=== PATIENT | female | born 1975 | race Caucasian/White ===

== ENCOUNTER 2025-01-20 19:36 | Inpatient (IN) | payer OTHER, SELFPAY ==
[2025-01-20] VITALS (7 sets, daily range): BP systolic 142–178; BP diastolic 64–128; PULSE 58–111; RESP 21–31; TEMP 36.4–36.7; O2SAT 92–100
--- NOTE | ~2025-01-20 | US_ITS ---
BILATERAL LOWER EXTREMITY VENOUS ULTRASOUND Ordering provider: Freya Saravia History: . Left lower extremity edema, PE . Comparison: None. FINDINGS: RIGHT LOWER EXTREMITY VEINS: --COMMON FEMORAL: Patent and free of thrombus. Normal compressibility, phasic flow and augmentation. --PROXIMAL SUPERFICIAL FEMORAL: Patent and free of thrombus. Normal compressibility, phasic flow and augmentation. --DISTAL SUPERFICIAL FEMORAL: Patent and free of thrombus. Normal compressibility, phasic flow and au gmentation. --POPLITEAL: Patent and free of thrombus. Normal compressibility, phasic flow and augmentation. --POSTERIOR TIBIAL: Patent and free of thrombus. Normal compressibility, phasic flow and augmentation . LEFT LOWER EXTREMITY VEINS: --COMMON FEMORAL: Patent and free of thrombus. Normal compressibility, phasic flow and augmentation. --PROXIMAL SUPERFICIAL FEMORAL: Patent and free of thrombus. Normal compressibility, phasic flow and augmentation. --DISTAL SUPERFICIAL FEMORAL: Patent and free of thrombus. Normal compressibility, phasic flow and au gmentation. --POPLITEAL: Patent and free of thrombus. Normal compressibility, phasic flow and augmentation. --POSTERIOR TIBIAL: Thrombosed. --Peroneal vein: Thrombosed. IMPRESSION: Thrombosis in the left peroneal and posterior tibial veins. No right deep vein thrombosis. Reviewed, dictated and finalized at location A.
--- NOTE | ~2025-01-20 | CT_ITS ---
CT brain wo con Ordering provider: Stefani Rogers DO History: 49 years Female with . Visual changes, dizziness, recently blood thinner . Comparison: None. Technique: CT of the head without contrast. Radiation reduction technique utilized.The dose-length pr oduct was 605.33 mGy-cm. Ke FINDINGS: BRAIN PARENCHYMA AND CSF SPACES: No midline shift, mass effect or hemorrhage. The brain parenchyma a nd CSF spaces are otherwise normal. VISUALIZED PARANASAL SINUSES: Well aerated. MASTOIDS: Well aerated. BONES: The bones appear intact. SOFT TISSUES: Visualized nasopharynx is normal. Superficial soft tissues are normal. IMPRESSION: No acute intracranial findings. Reviewed, dictated and finalized at location A.
--- NOTE | ~2025-01-20 | XR_ITS ---
EXAMINATION: XR chest 2V Exam Date/Time: 01/20/2025 20:19 CDT HISTORY: sob Comparison: None. RESULT: Lines, tubes, and devices: Soft tissue anchors in the right humeral head. Lungs and pleura: Clear. Scattered granulomas. Cardiomediastinal silhouette: Unremarkable. Other: No acute osseous or upper abdominal finding. IMPRESSION: No acute cardiopulmonary process. Reviewed, dictated and finalized at location K.
--- NOTE | ~2025-01-20 | CT_ITS ---
CTA chest PE protocol Ordering provider: Milad Grijalva History: 49 years Female with . elevated dimer . Comparison: None. Technique: CT angiogram chest was performed following timed intravenous injection of contrast. Thin s lice axial images and reformatted coronal images were obtained. Three dimensional reformatted images of the chest were also obtained using a [employer] workstation. . Automated exposure control and iterati ve reconstruction technique were employed. The dose-length product was 792.20 mGy-cm. 100 mL Omnipaqu e 350 was given IV. Findings: PULMONARY ARTERIES: pulmonary embolism is noted. Right ventricular strain is noted. VISUALIZED THORACIC INLET: Normal. MEDIASTINUM: Aorta/coronary arteries: The thoracic aorta is normal. Heart/other: The heart is slightly enlarged. Lymph nodes: No mediastinal or hilar adenopathy. LUNGS: Groundglass appearance is seen in the upper and lower lobes which may indicate atelectasis versus pne umonia versus pulmonary edema. Clinical correlation and follow-up advised. No pulmonary nodules or ma sses. No effusions. No pneumothorax. VISUALIZED UPPER ABDOMEN: Status post cholecystectomy. Otherwise, the visualized upper abdomen is nor mal. MUSCULOSKELETAL: Soft tissues: The superficial soft tissues are normal. Bones: Age appropriate degenerative changes of the spine. IMPRESSION: 1. Pulmonary embolism with right ventricular strain. 2. Groundglass appearance is seen in both lower lobes and both upper lobes which may indicate atelec tasis versus pneumonia versus pulmonary edema. Clinical correlation and follow-up advised. I called the hospitalist office multiple times with no success and left a message on the voicemail. Reviewed, dictated and finalized at location A. IMPRESSION: 1. Pulmonary embolism with right ventricular strain. 2. Groundglass appearance is seen in both lower lobes and both upper lobes whi ch may indicate atelectasis versus pneumonia versus pulmonary edema. Clinical c orrelation and follow-up advised. I called the hospitalist office multiple times with no success and left a messa ge on the voicemail.
--- NOTE | 2025-01-20 19:55 | ECG_ITS ---
Test Date: 2025-01-20 20:15:09 Measurements Intervals [place] Rate: 101 P: 30 CO: 164 QRS: -12 QRSD: 93 T: 18 QT: 356 QTc: 462 Interpretive Statements SINUS TACHYCARDIA Poor R wave progression No previous ECG available for comparison Electronically Signed On 01-20-2025 22:08:56 CDT by Kaylen Montgomery M.D.
[2025-01-20 20:33] LABS: Hematocrit 41.6 % (37.0-47.0); Hemoglobin 13.8 g/dL (12.0-15.0); Immature Granulocyte Percent A 0.1 % (0-0.5); Lymphocytes Absolute Auto 3.24 K/mm3 (0.9-3.2); Mean Corpuscular HGB Conc 33.2 g/dl (32-36); Mean Corpuscular Hemoglobin 31.9 pg (26-34); Mean Corpuscular Volume 96.3 fl (80-100); Nucleated Red Blood Cells Absolute Auto 0.000 K/mm3 (0.0-0.012); Nucleated Red Blood Cells Perc 0.0 % (0.0-0.2); Platelet Count Result 256 k/mm3 (150-375); Red Blood Count 4.32 M/mm3 (4.2-5.4); White Blood Count 9.9 K/mm3 (4.5-10.0)
[2025-01-20 20:45] LABS: Alanine Aminotransferase 26 U/L (6-35); Albumin Level 3.6 g/dL (3.5-5.1); Alkaline Phosphatase 97 U/L (38-126); Anion Gap 7 mmol/L (4-12); Aspartate Amino Transferase 26 U/L (14-36); Bilirubin,Total 0.1 mg/dL (0.2-1.3); Blood Urea Nitrogen 8 mg/dL (7-17); Calcium 8.7 mg/dL (8.4-10.2); Carbon Dioxide 25 mmol/L (22-30); Chloride 106 mmol/L (98-107); Estimated CRCL calculation 124 ml/min; Estimated Glomerular Filt Rate > 60; Glucose 118 mg/dL (65-110); Potassium 3.3 mmol/L (3.4-5.0); Sodium 138 mmol/L (137-145); Total Protein 6.8 g/dL (6.3-8.2)
[2025-01-20 21:12] LABS: Influenza A QL RT-PCR Negative (Negative); Influenza B QL RT-PCR Negative (Negative); RSV RNA, RT-PCR Negative (Negative); SARS-CoV-2 RNA PCR Negative (Negative)
--- NOTE | 2025-01-20 21:24 | ED_ITS ---
HPI - General Adult General Chief complaint: Shortness of Breath/Dyspnea Stated complaint: SOB since Monday Time Seen by Provider: 01/20/25 21:16 History of Present Illness HPI narrative: Patient is a 49-year-old female who presents to the emergency department this evening complaining of a COPD exacerbation. States that she has been having shortness of breath since this past Monday. She tried again with her PCP but she can get in until January 30. Admits that she does have a history of COPD and does use an albuterol inhaler at home. States that despite using the inhaler her symptoms have not improved and from time to time she does need to come to the ED for nebulizer, steroids and some antibiotics. Admits that she has been having a cough but denies any fevers or chills. Denies any sick contacts at home. Related Data Allergies Allergy/AdvReac Type Severity Reaction Status Date / Time No Known Allergies Allergy Verified 01/20/25 21:29 Review of Systems 2 Review of Systems: All systems are reviewed and are negative unless stated otherwise in the HPI. Exam 2 Narrative: General: Alert, awake, afebrile, in no acute distress. HEENT: PERRL, no rhinorrhea, no post nasal drip, oropharynx clear. Neck: Trachea midline, no JVD, no lymphadenopathy. Cardiovascular: Tachycardic with regular rhythm, no murmurs, rubs or gallops, no peripheral edema. Respiratory: Diffuse bilateral expiratory and inspiratory wheezing, tachypnea, no respiratory distress. Abdomen: Soft, nontender, nondistended, no rebound, no guarding, no peritoneal signs. Musculoskeletal: No joint swelling or deformity, normal muscle tone. Skin: No rashes or petechia, no signs of infection. Psychiatric: Alert and oriented, normal behavior and judgment for situation. Neurological: Alert and oriented to person, place, and time. Follows all commands. No focal deficits, speech is clear and fluent. Course Vital Signs Vital signs: Vital Signs Temperature 97.5 F L 01/20/25 19:52 Pulse Rate 111 H 01/20/25 19:52 Respiratory Rate 26 H 01/20/25 19:52 Blood Pressure 142/97 H 01/20/25 19:52 Pulse Oximetry 96 01/20/25 19:52 Oxygen Delivery Room Air 01/20/25 19:52 Temperature 97.5 F L 01/20/25 19:52 Pulse Rate 111 H 01/20/25 19:52 Respiratory Rate 26 H 01/20/25 19:52 Blood Pressure 142/97 H 01/20/25 19:52 Pulse Oximetry 98 01/20/25 21:47 Oxygen Delivery Room Air 01/20/25 21:47 Fraction of Inspired Oxygen 21 01/20/25 21:47 Medical Decision Making MDM Narrative Medical decision making narrative: The patient was evaluated by myself in the emergency department. History is obtained from patient who is an independent historian and physical exam was performed. External medical records were reviewed at this time. IV was established and pertinent tests were ordered. Patient was administered 1 L IV fluid bolus with normal saline, an hour long DuoNeb breathing treatment and 125 mg of IV Solu-Medrol. EKG was obtained which revealed sinus tachycardia rate of 101 beats per minute. No ST changes, T wave inversions or evidence of acute ischemia. EKG was independently interpreted by me and is currently pending official cardiology read. Laboratory results obtained revealing a potassium level of 3.3 otherwise unremarkable. Patient was administered 40 mg of oral potassium at this time. Imaging studies obtained included CXR which was independently interpreted by me revealing no acute cardiopulmonary process, which is pending final radiology interpretation. Differential diagnosis considerations include COPD exacerbation, acute viral syndrome, infectious process such as pneumonia. Comorbidities impacting this visit include history of COPD. I have evaluated and discussed social determinants of health with the patient that could potentially impact subsequent diagnosis and treatment plans. On repeat assessment of the patient, reevaluation revealed that the patient is doing well and is in no acute distress. Patient symptoms have improved since she arrived to our emergency department, however, patient continues to feel short of breath and does have persistent bilateral wheezing. Repeat vital signs were all reviewed and noted to be stable. Differential diagnosis and treatment plan were discussed with the patient at bedside. Patient agrees with discussion and after shared medical decision making agrees with admission. All questions were answered to the patient's satisfaction. Case discussed with the on-call hospitalist Dr. Rogers at [phone] and she accepted admission. Vital Signs Vital Signs: Vital Signs Temperature 97.5 F L 01/20/25 19:52 Pulse Rate 111 H 01/20/25 19:52 Respiratory Rate 26 H 01/20/25 19:52 Blood Pressure 142/97 H 01/20/25 19:52 Pulse Oximetry 96 01/20/25 19:52 Oxygen Delivery Room Air 01/20/25 19:52 Temperature 97.5 F L 01/20/25 19:52 Pulse Rate 111 H 01/20/25 19:52 Respiratory Rate 26 H 01/20/25 19:52 Blood Pressure 142/97 H 01/20/25 19:52 Pulse Oximetry 98 01/20/25 21:47 Oxygen Delivery Room Air 01/20/25 21:47 Fraction of Inspired Oxygen 21 01/20/25 21:47 Lab Data 01/20/25 20:20 01/20/25 20:20 Labs: Lab Results 01/20/25 Range/Units 20:20 WBC 9.9 (4.5-10.0) K/mm3 RBC 4.32 (4.2-5.4) M/mm3 Hgb 13.8 (12.0-15.0) g/dL Hct 41.6 (37.0-47.0) % MCV 96.3 (80-100) fl MCH 31.9 (26-34) pg MCHC 33.2 (32-36) g/dl RDW 11.9 (11.5-14.5) % Plt Count 256 (150-375) k/mm3 MPV 9.7 (7.4-10.4) fl Immature Gran % (Auto) 0.1 (0-0.5) % Neut % (Auto) 52.8 (45.5-73.1) % Lymph % (Auto) 32.9 (18.3-44.2) % [place] % (Auto) 9.5 H (2.6-8.5) % Eos % (Auto) 4.2 (0-4.4) % Baso % (Auto) 0.5 (0.2-1.2) % Lymph # (Auto) 3.24 H (0.9-3.2) K/mm3 [place] # (Auto) 0.9 H (0.1-0.6) K/mm3 Eos # (Auto) 0.4 H (0-0.3) K/mm3 Baso # (Auto) 0.1 (0.0-0.1) K/mm3 Abs Immat Gran (auto) 0.01 (0.00-0.031) K/mm3 Absolute Neuts (auto) 5.2 (1.3-6.7) K/mm3 Absolute Nucleated RBC 0.000 (0.0-0.012) K/mm3 Nucleated RBC % 0.0 (0.0-0.2) % Sodium 138 (137-145) mmol/L Potassium 3.3 L (3.4-5.0) mmol/L Chloride 106 (98-107) mmol/L Carbon Dioxide 25 (22-30) mmol/L Anion Gap 7 (4-12) mmol/L BUN 8 (7-17) mg/dL Creatinine 0.59 L (0.7-1.0) mg/dL Estim Creat Clear Calc 124 ml/min Estimated GFR > 60 (59 - ) Glucose 118 H (65-110) mg/dL Calcium 8.7 (8.4-10.2) mg/dL Total Bilirubin 0.1 L (0.2-1.3) mg/dL AST 26 (14-36) U/L ALT 26 (6-35) U/L Alkaline Phosphatase 97 (38-126) U/L Total Protein 6.8 (6.3-8.2) g/dL Albumin 3.6 (3.5-5.1) g/dL Influenza A (RT-PCR) Negative (Negative) Influenza B (RT-PCR) Negative (Negative) RSV (RT-PCR) Negative (Negative) SARS-CoV-2 RNA (RT-PCR) Negative (Negative) Discharge Plan Discharge Clinical Impression: COPD with acute exacerbation, Acute dyspnea, Acute hypokalemia Patient Disposition: Still a Patient Condition: Improved Instructions: COPD (Chronic Obstructive Pulmonary Disease) (DC) Patient Language: Kiswahili Prescriptions: New methylprednisolone [Medrol (Gm)] 4 mg tablets,dose pack See Rx Instructions .ROUTE .COMPLEX Qty: 21 0RF Rx Instructions: for 6 days azithromycin 250 mg tablet See Rx Instructions .ROUTE .COMPLEX Qty: 6 0RF Rx Instructions: For 250 mg dose pack: take 500 mg today (day 1), then 250 mg for 4 days (days 2-5) Time of Disposition: 21:31
--- OUTSIDE RECORDS SUMMARY | 2025-01-20 21:30 | XMS_ITS | Clinical Summary ---
Author Organization [facility] Address [address] [place] [address] Care Team Providers Care Balance Assembler Name Role Phone Dorothy Godfrey SENIOR ONLINE MARKETING MANAGER-WIRE STRAIGHTENING MACHINE OPERATOR Primary Care Provider Source Comments [facility],non-owned Affiliates and Associated Physician Practices is amultiple site organization consisting of ambulatory clinics and hospital sitesin [place], [place], [place] and [place]. This disclosure is being madepursuant to the Care Everywhere program and may not contain all information available regarding this patient. Last updated 18.[facility] [employer] Allergies Active Allergy Reactions Criticality Noted Date Comments Penicillins Anaphylaxis High 06/08/2018 Medications * Be aware that medications may not be up to date on this document. Alwaysverify current medications with the patient. albuterol HFA (PROVENTIL;VENTOL IN;PROAIR) 108 (90 BASE) MCG/ACT inhaler Inhale 2 puffs by mouth every 6 hours as needed Active fluticasone propionate (FLONASE ALLERGY RELIEF) 50 MCG/ACT nasal spray [place] 2 sprays into each nostril once daily Active montelukast (SINGULAIR) 10 MG tabletIndications :Encounter for medication refill Take 1 tablet by mouth at bedtime 30 tablet 8 Active azithromycin (ZITHROMAX) 250 MG tabletIndications :COPD exacerbation (HCC) Take 2 tablets now, then 1 tablet daily for 4 days. 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 Pulse 95 06/08/2018 5:27 PM GAME FARM HELPER Temperature 37 C (98.6 F) 06/08/2018 5:27 PM GAME [employer]ARM HELPER Respiratory Rate 15 06/08/2018 5:27 PM GAME FARM HELPER Oxygen Saturation 99% 06/08/2018 5:27 PM G[employer] HELPER Inhaled Oxygen Concentration - - Weight 104.3 kg (230 lb) 06/08/2018 5:27 PM GAME [employer] HEL[employer] Height 167.6 cm (5' 6) 06/08/2018 5:27 PM GAME FARM HELPER Body Mass Index 37.12 06/08/2018 5:27 PM GAME FARM HELPER Plan of Treatment Health Maintenance Due Date Last Done Comments COLOGUARD (AGES 45-75) - COL ON CA SCREENING 1974 COLON MONITORING 1974 COLONOSCOPY - COLON CA SCREENING 1974 CT COLONOGRAPHY - COLON CA SCREENING 1974 Colorectal Cancer Screening 1974 FIT - COLON CA SCREENING 1974 FLEX SIG - COLON CA SCREENING 1974 LIPID TESTING 1974 MAMMOGRAM 1974 HIV SCREENING 1989 HEPATITIS C SCREENING 10/02/1992 DTAP/TDAP/TD VACCINES (1 - Tdap) 1993 HEPATITIS B VACCINE (1 of 3 - 19+ 3-dose series) 1993 SCREENING FOR DIABETES 06/08/2018 COVID-19 VACCINE (1 - 2023-2 5 season) 2024 DEPRESSION SCREENING 07/17/2024 PNEUMOCOCCAL VACCINE 50+ (1 of 1 - PCV) 2024 ZOSTER VACCINE (1 of 2) 2024 INFLUENZA VACCINE (#1) 2025 HIB VACCINE Aged Out No longer eligi ble based on patient's age to complete this topic HPV VACCINE Aged Out No longer eligi ble based on patient's age to complete this topic MENINGOCOCCAL (Group B) VACC INE SHARED DECISION-MAKING Aged Out No longer eligibl e based on patient's age to complete this topic MENINGOCOCCAL GROUPS A/C/Y/W VACCINE Aged Out No longer eligible b ased on patient's age to complete this topic Insurance ANTHEM Care Teams Balance Assembler Relationship Specialty Start Date End Date Dorothy Godfrey, SENIOR ONLINE MARKETING MANAGER-WIRE STRAIGHTENING MACHINE OPERATOR [address] [place] [address] [address] [place] [address] PCP - General Nurse Practitioner 06/08/18
--- OUTSIDE RECORDS SUMMARY | 2025-01-20 21:30 | XMS_ITS | Data Portability ---
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 Account Auditor variances may occur. Despite proofreading, typographical errors may occur. Occasional wrong-word or '[id number]' substitutions may have occurred due to the inherent limitations of voice recording. Read the chart carefully and recognize, using context, where substitutions have occurred. [email or web address] Not available 11/21/2023 15:01:26 Plan of Treatment Reminders Order Date Submit Date Provider Last Modified By Organization Details Last Modified Time Details Appointments Any 15 2024 08:30A M Beni winston MD Not available Not available Not available Lab glycohemo globin, total, blood 2023 024 [email or web address] [facility] (Lab), [address] [place], [address], 01/23/2024 08:16:00 CMP, serum or plasma 2023 024 [email or web address] [facility] (Lab), [address] [place], [address], 01/23/2024 08:16:00 CBC 2023 024 [email or web address] [facility] (Lab), [address] [place], [address], 01/23/2024 08:16:00 C-reactiv e protein, quantitat masoud, serum or plasma 2023 024 [email or web address] [facility] (Lab), [address] [place], [address], 01/23/2024 08:16:00 ESR (erythroc yte sedimenta tion rate), blood 2023 024 [email or web address] [facility] (Lab), [address] [place], [address], 01/23/2024 08:16:00 Referral vascular surgeon referral - PLEASE CALL PT TO SCHEDULE AN APPT..... ....THANK YOU! [email or web address] [facility] Referral Fax Line, [address] [facility], [address], [place], [address], 12/25/2023 08:21:22 podiatris t referral - Patient has multiple toe deformiti es. 2023 024 terry Bennett DPM, [address] [facility], [facility] [address], [place], [address], 11/13/2023 11:15:01 pulmonolo gist referral 2023 024 rayne Vick MD, [address] [place], [address], 05/13/2024 07:30:53 Procedures None recorded. Surgeries None recorded. Imaging XR, foot, 3 or more view 2023 024 [facility] ([facility]), [address] [place], [address], 11/07/2023 18:55:50 XR, chest, 2 view 2023 024 [facility] ([facility]), [address] [place], [address], 11/07/2023 19:29:01 XR, shoulder, 2 or more view - Left shoulder 2023 024 [facility] ([facility] Sched[facility]), [address] [place], [address], 11/07/2023 19:35:32 Medication Orders albuterol sulfate HFA 90 mcg/actua tion aerosol inhaler 2023 024 [facility] #[id number], [address], [place], [address], 10/16/2023 12:19:09 Patient TargetsNo targets recorded. 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 Referring Physician: Barbara Paredes, Internal Medicine, Encounter Date: 10/16/2023 Inventory Control Coordinator Referral for C hronic obstructive pulmonary disease Referring Physician: Barbara Paredes, Internal Medicine, Encounter Date: 10/16/2023 Vascular Surgeon Referral fo r Varicose veins of lower extremity PLEASE CALL PT TO SCHEDULE AN APPT.........THANK YOU! Referring Physician: Jitendra Bennett, Podiatric Surgery, Encounter Date: 11/21/2023 Results Created Date Observation Date Name Description Value Unit Range Abnormal Flag Note LastModifiedBy Organization Detail LastModifiedTime 11/07/1910/17/2023 XR, chest , 2 view No observ ation record ed. [facility] [address] [place], [address], 11/08/2023 10:50:00 11/07/19 24 10/17/2023 XR, foot, 3 or more view No observ ation record ed. [facility] [address] [place], [address], 11/08/2023 10:50:01 11/07/19 24 10/17/2023 XR, shoul cat, 2 or more view No observ ation record ed. [facility] [address] [place], [address], 11/08/2023 10:50:01 01/11/20 24 01/11/2024 imagi ng/di agnos tic resul t No observ ation record ed. [email or web address] [facility] [address] [facility] [address], [place], [address], 01/15/2024 09:04:19 01/11/20 24 01/11/2024 US, echoc ardio gram No observ ation record ed. [email or web address] [facility] [address] [facility] [address], [place], [address], 01/15/2024 09:47:30 01/11/20 24 01/11/2024 US, duple x, venou s, lower extre mity No observ ation record ed. [email or web address] [facility] [address], [place], [address], 01/15/2024 09:06:02 01/11/20 24 01/11/2024 US, echoc ardio gram No observ ation record ed. [email or web address] [facility] [address], [place], [address], 01/15/2024 09:47:01 12/18/19 25 12/17/2024 US, doppl er, venou s No observ ation record ed. [email or web address] [facility] [address], [place], [address], 12/18/2024 09:52:42 12/18/19 25 12/17/2024 US, doppl er, venou s No observ ation record ed. [email or web address] [facility] [address], [place], [address], 12/18/2024 09:08:45 Result Notes None recorded. Problems Name Problem SNOMED Code Status Onset Date Resolution Date Notes Provider Name and Address Organization Details Recorded Time Bronchitis 86711721 Active Not Available [facility] 16:44:47 Cough 54767817 Active Not Available [facility] 16:44:47 Diarrhea 04829573 Active Not Available [facility] 16:44:47 Rhinitis 15920743 Active Not Available [facility] 3 16:44:47 Chronic obstructiv e pulmonary disease 13798309 Active 2023 Barbara Paredes APRN [address], [address], [place], [address] , [employer] 4 12:01:26 Environmen halle allergy 362240770 Active 2023 Barbara Paredes APRN [address], [address], [place], [address] , [employer] 4 12:02:19 Pain of shoulder region 25534973 Active 2023 Barbara Paredes APRN [address], [address], [place], [address] , [employer] 4 12:02:54 Varicose vein finding 513312732 Active 2023 Barbara Paredes APRN [address], [address], [place], [address] , [employer] 4 12:03:47 Deformity of foot 987277140 Active 2023 Barbara Paredes APRN [address], [address], [place], [address] , [employer] 4 12:04:19 Anxiety 70167817 Active 2023 Barbara Paredes APRN [address], [address], [place], [address] , [facility] [employer] [facility] [employer] [facility] 4 12:06:04 Bunion 414175806 Active 2023 Jitendra Bennett DPM [address], [address], [place], [address] , [facility] [employer] [facility] [employer] [facility] 4 15:00:20 Pain in left foot 8148681935076 07 Active 2023 Jitendra Bennett DPM [address], [address], [place], [address] , [employer] [facility] [employer] [facility] 4 15:00:27 Pain in right foot 2161703036425 07 Active 2023 Jitendra Bennett DPM [address], [address], [place], [address] , [employer] [facility] [employer] [facility] 4 15:00:31 Foot callus 331386080 Active 2023 Jitendra Bennett DPM [address], [address], [place], [address] , [employer] [facility] [employer] [facility] 4 15:00:35 Varicose veins of lower extremity 30377937 Active 2023 Jitendra Bennett DPM [address], [address], [place], [address] , [facility] [employer] [facility] [employer] [facility] 4 15:01:00 Obesity 120801576 Active 2023 Barbara Paredes APRN [address], [address], [place], [address] , [facility] [employer] [facility] [employer] [facility] 4 08:38:18 Seasonal allergy 862769039 Active 2023 Mayra paige, [place] [employer] [facility] [employer] [facility] 4 15:03:34 Arthritis 2508743 Active 2023 Barbara Paredes APRN [address], [place], [address] , [facility] 4 08:38:04 Bowel problem 205785581 Active 2023 Mayra Esquiveld royal, [facility] 4 15:03:54 Ear problem 994022629 Active 2023 Mayra Esquiveld null, [facility] 4 15:04:09 Excessive sweating 58429304 Active 2023 Mayra Kymberly null, [facility] 4 15:04:19 Disorder of eye 419697185 Active 2023 Mayra Traylor royal, [facility] 4 15:04:29 Headache 31462730 Active 2023 Mayra Traylor royal, [facility] 4 15:04:36 Hypertensi ve disorder 75002320 Active 2023 Barbara Paredes APRN [address], [address], [place], [address] , [facility] 4 08:38:06 Notes:BACK/NECK PROBLEMS Problem Notes None recorded. Procedures Surgical History Date Name Laterality Status Provider Name and Address Organization Details Recorded Time 11/21/19 24 Callus Debridement, One completed Jitendra Bennett DPM [address], [place], [address], [facility] 11/27/2023 11:02:40 Hysterectomy completed Angy Caban [facility] 10/16/2023 11:54:35 Cholecystectomy completed Angy Caban [facility] 10/16/2023 11:54:58 Rotator cuff surgery completed Angy Caban [facility] 10/16/2023 11:55:13 Imaging Results None recorded. Procedure Notes None recorded. Medical Equipment None Reported. Allergies Allergen ID Allergen Name Allergen Category Reaction Reaction Severity Criticality Documentation Date Start Date Code Code System Note Provider Name and Address Organization Details Recorded Time 95990 Product containin g penicilli n (product) medicatio n anaphylax is severe Not available 09/14/2022 37225 8001 SNOMED Not Available [facility] 3 16:45:48 94381 codeine medicatio n abdominal pain hives Not available Not available Not available 09/14/2022 2670 RxNorm Not Available [facility] 3 16:45:48 Medications Name Sig Start Date Stop Date Status Note LastModified by Organization Details LastModified Time prednisone 10 mg tablet 40 mg x 2 days, 30mg x 2 days, 20mg x 2 days, 10mg x 2 days 06/23 completed called to pharm Not Available Not Available Not Available azithromyc in 250 mg tablet TAKE 2 TABLETS (500 MG) BY ORAL ROUTE ONCE DAILY FOR 1 DAY THEN 1 TABLET (250 MG) BY ORAL ROUTE ONCE DAILY FOR 4 DAYS 10/15 completed Not Available Not Available Not Available benzonatat e 200 mg capsule Take 1 capsule 3 times a day by oral route. active Not Available Not Available No t Available clarithrom ycin 500 mg tablet Take 1 tablet every 12 hours by oral route. active Not Available Not Available No t Available hydrocodon e 5 mg-acetami nophen 325 mg tablet TK 1 T PO Q 6 H PRN P 01/13 completed Not Available Not Available Not Available promethazi ne 6.25 mg-codeine 10 mg/5 mL syrup Take 5 mL every 6 hours by oral route. 10/27 completed Not Available Not Available Not Available phentermin e 37.5 mg tablet TK 1 T PO ONCE D 07/15 completed Not Available Not Available Not Available meloxicam 7.5 mg tablet TK 2 TS PO QD 10/15 completed Not Available Not Available Not Available Tessalon Perles 100 mg capsule Take 1 capsule 3 times a day by oral route. 10/27 completed Not Available Not Available Not Available losartan 25 mg tablet Take 1 tablet every day by oral route as directed . 2023 active Not Available Not Available Not Avai lable Advair Diskus 250 mcg-50 mcg/dose powder for inhalation Inhale 1 puff twice a day by inhalati on route. 12/01 completed Not Available Not Available Not Available gabapentin 300 mg capsule TK ONE C PO HS 07/15 completed Not Available Not Available Not Available montelukas t 10 mg tablet TAKE 1 TABLET BY MOUTH ONCE DAILY 12/01 completed Not Available Not Available Not Available methylpred nisolone 4 mg tablets in a dose pack FOLLOW PACKAGE DIRECTIO NS 10/15 completed Not Available Not Available Not Available albuterol sulfate HFA 90 mcg/actuat ion aerosol inhaler INHALE 2 PUFF(S) EVERY 4 HOURS BY MOUTH 2023 active Not Available Not Available Not Avai lable fluticason e propionate 50 mcg/actuat ion nasal spray,susp ension 2sprays each nostril at supper time 12/01 completed Not Available Not Available Not Available oxycodone 5 mg tablet TK 1 T PO Q 4 H PRN active Not Available Not Available No t Available Breo Ellipta 100 mcg-25 mcg/dose powder for inhalation Inhale 1 puff every day by inhalati on route. 12/01 completed Not Available Not Available Not Available Vitals Date Recorded Body weight Body mass index (BMI) Body height Body temperature Heart rate Systolic And Diastolic Provider Name and Address Organization Details Last Updated DateTime 4 281924. 65 g 41.3 kg/m2 167.64 cm 97.6 [degF] 96 /min 148/96 mm[Hg] OLIMPIA Adamson [employer] 4 11:58:36 Date Recorded Body mass index (BMI) Body weight Provider Name and Address Organization Details Last Updated DateTime 11/21/2023 42 kg/m2 873749.[address] [employer] 11/21/2023 15:03:01 Date Recorded Body height Heart rate Respiratory rate Oxygen saturation Oxygen saturation in Arterial blood by Pulse oximetry Provider Name and Address Organization Details Last Updated DateTime 4 167.64 cm 98 /min 16 /min 98 % 98 % Teresa Holliday [employer] 4 14:22:34 Social History Question Answer Notes LastModified by Organizat ion Details LastModified Time Tobacco Smoking Status Never Smoker OLIMPIA Adamson [employer] [facility] [employer] 10/16/2023 11:51:26 Do You Have An Advance Directive? No Information not available 10/16/2023 What Is Your Level Of Caffeine Consumption? Heavy Information not available 10/16/2023 In The 14 Days Before Symptom Onset, Have You Had Close Contact With A Laboratory-confir med COVID-19 While That Case Was Ill? No Information not available 10/16/2023 In The 14 Days Before Symptom Onset, Have You Had Close Contact With A Person Who Is Under Investigation For COVID-19 While That Person Was Ill? No Information not available 10/16/2023 What Type Of Diet Are You Following? REGULAR Information not available 10/16/2023 What Is The Highest Grade Or Level Of School You Have Completed Or The Highest Degree You Have Received? [id number] Information not available 10/16/2023 What Is The Fluoride Status Of Your Home? Unknown Information not available 10/16/2023 Are There Any Guns Present In Your Home? Yes Information not available 10/16/2023 Where Do You Live? [facility] Information not available 10/16/2023 Do You Have A Medical Power Of Tour Bus Driver? No Information not available 10/16/2023 What Was The Date Of Your Most Recent Tobacco Screening? 10/16/2023 Information not available 10/16/2023 Do You Have Any Pets? Yes Information not available 10/16/2023 What Is Your Relationship Status? Information not available 10/16/2023 Do You Use Your Seat Belt Or Car Seat Routinely? Yes Information not available 10/16/2023 Do You Have Smoke And Carbon Monoxide Detectors In Your Home? Yes Information not available 10/16/2023 Are You Passively Exposed To Smoke? No Information no t available 10/16/2023 Are There Any Smokers In Your House? No Information not available 10/16/2023 Has Tobacco Cessation Counseling Been Provided? No N/a Information not available 10/16/2023 Have You Recently Traveled Abroad? No Information not available 10/16/2023 Sex: Female Functional Status Question Answer Note LastModified by Organizat ion Details LastModified Time Do you use any illicit or recreational drugs? No used to smoke marijuana Information not available 10/16/2023 Do you or have you ever used any other forms of tobacco or nicotine? No Information not available 10/16/2023 What is your level of alcohol consumption? [facility] Information not available 10/16/2023 Are you currently employed? 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 None [facility] Information not available 10/16/2023 Mental Status Question Answer Note LastModified by Organization D etails LastModified Time Do you feel stressed (tense, restless, nervous, or anxious, or unable to sleep at night)? [id number] [facility] Information not available 10/16/2023 Family History Relationship Description Onset Age of this Age Resolved Age Notes LastModified by Organization Details LastModified Time Mother Chronic obstructive pulmonary disease Not available 2023 11:48:24 Mother Hypertensive disorder Not available 2023 11:48:31 Mother Brain stem hemorrhage Not available 10/15 11:48:51 Father Cerebrovascu lar accident Not available 07/2023 11:49:03 Father Hypertensive disorder Not available 2023 11:49:28 Father Diabetes mellitus Not available 2023 11:49:41 Father Exposure to Agent Huntington Not available 07/2023 11:49:57 Father Arthritis [email or web address] Not available 11/21/2023 15:05:43 Father Family history of malignant neoplasm [email or web address] Not available 2023 15:06:04 Medical History Condition Response NERVE DISEASE N BLINDNESS N RHEUMATIC FEVER N KIDNEY STONES N BLADDER PROBLEMS N MRSA N OTHER # 1 N POLIO N LUNG DISEASE/DISORDER N HISTORY OF DRUG ABUSE N COPD Y RADIATION / CHEMOTHERAPY N Other # 2 N BLOOD DISEASES N EAR OR HEARING PROBLEMS Y MUMPS N SHINGLES N DEPRESSION (INCLUDING POST ) N BOWEL PROBLEMS Y FAILED BACK SYNDROME N STROKE/TIA N ULCERS N BENIGN PROSTATIC HYPERPLASIA N MEASLES N HYPOTENSION N MYOCARDIAL INFARCTION N OBESITY Y GERD/NAUSEA N ANEURYSM N URINARY/BLADDER/KIDNEY PROBLEMS N CORONARY ARTERY DISEASE (CAD) N Do you have Advance directive? N ADDICTION CONCERNS N Impotence N ENDOMETRIOSIS N USE OF BLOOD THINNERS N SKIN PROBLEMS N GASTROINTESTINAL DISORDER N PERIPHERAL VASCULAR DISEASE N MUSCLE,JOINT OR BONE PROBLEMS N GASTROINTESTINAL BLEEDING N BLOOD CLOTS N ASTHMA N CATARACTS N Abdominal Pain N ERECTILE DYSFUNCTION N ARTERIAL INSUFFICIENCY N VARICOSITIES N GI PROBLEMS N Low Testosterone N INFERTILITY N AIDS/HIV N CHEMOTHERAPY / RADIATION N LIVER DISEASE N MALE HYPOGONADISM N HYPERTENSION Y Deficiency N TOURETTE'S N ANXIETY DISORDER Y BLOOD TRANSFUSION N ANEMIA/BLOOD DISORDER N CHRONIC EAR INFECTIONS N TUBERCULOSIS N GLAUCOMA N FOOT PROBLEM N DIVERTICULITIS N SLEEP APNEA N CHICKENPOX N ALLERGIES/HAYFEVER Y BACK INJECTIONS N INFECTIOUS DISEASE N PROSTATE N HEART ARRHYTHMIA N ESRD N INSOMNIA N HIGH CHOLESTEROL / HYPERLIPIDEMIA N EYE PROBLEMS Y HYPERTHYROIDISM N PVD N EDEMA N CHRONIC PAIN SYNDROME N HYPOTHYROIDISM N CAROTID BLOCKAGE N CONSTIPATION N BACK / NECK PROBLEMS Y ATHEROSCLEROSIS N BREAST PROBLEMS N DIALYSIS N POLYCYSTIC OVARIES N ECZEMA N OSTEOPOROSIS N ARTHRITIS Y APPENDICITIS N DIABETES, TYPE N BAD TEETH N VON WILLIBRAND'S DISEASE N ENT N HEARTBURN / REFLUX N GI N AUTISM SPECTRUM DISORDER (ASD) N POST LAMINECTOMY SYNDROME N HEPATITIS / LIVER DISEASE N GOUT N SLEEP DISORDER N ALZHEIMER'S DISEASE N Brain Problems N DEMENTIA N HERPES N SEIZURES/EPILEPSY N HEADACHES/MIGRAINES Y VASCULAR DISEASE N PACEMAKER N DIZZINESS N HEART DISEASE/HEART PROBLEMS N KIDNEY DISEASE N MULTIPLE SCLEROSIS N NEUROPSYCHOLOGICAL N CANCER: SPECIFY N CARDIAC ARRHYTHMIA N ATRIAL FIBRILLATION N Gall Stones N PULMONARY EMBOLISM N AUTOIMMUNE DISEASE N Gynecological HistoryNo gynecological history recorded. Obstetrics History GPAL:G 0 P 0 0 0 0 Immunizations Vaccine Type Date Status Note Provider Jose e and Address Organization Details Recorded Time COVID-19 vaccine, vector-nr, rS-Ad26, PF, 0.5 mL 10/16/2020 completed Barbara Paredes, ELISEO [address] [facility], [address], [place], [address], [facility] [employer] 12/20/2023 07:58:12 Past Encounters Encounter ID Performer Location Encounter Start Date Encounter Closed Date Diagnosis/Indication Diagnosis SNOMED-CT Code Diagnosis ICD10 Code Diagnosis Note [id number] Beni zuniga MD [facility] Internal Med [address] [place] [address] 10/16/2023 11:39:06 10/16/2023 12:24:42 Chronic obstructive pulmonary disease 83246179 J44.9 Deformity of foot 744386 004 M21.969 Pain of sh ould region 35452100 M25.940 [id number] Jitendra Bennett DPM [facility] [place] [address] [facility] [address] [place] [address] 11/21/2023 14:05:52 11/28/2023 13:57:37 Bunion 763415248 M21.619 xrays reviewedTr eatment options reviewedre commend conservati ve therapysho e gear, orthotics, conservati ve options, offloading options reviewed with the patient in detailfoll ow-up as needed Pain in left foot 858305 7008 28228 M79.672 as above Pain in right foot 35416 49690 35195 M79.671 as above Foot callus 382378037 L8 4 recommend use of urea lotionreco mmend use of pumice stonesuppo rtive shoe gear will help to prevent callusing Varicose v eins of lower extremity 68930689 I83.93 vascular referral- for further evaluation workupreco mmend chronic compressio n therapyPat ient educated on wear how to obtain compressio n stockingsr ecommend 15-20 mmHg compressio n Obesity 215767532 E66.9 Health Concerns Section Related Observation LastModified by Organization Detai ls LastModified Time None Recorded Concern Status LastModified by Organization Details LastModified Time None Recorded Advance Directives Directive N: Payers Insurance Date Sequence Insurance Name Policy Number Policy Peter Covered Member ID Peter Member ID Guarantor Name 10/16/2023 1 [employer] [id number] Thomas Mancia [id number] Brandi Mancia 11/28/2023 1 [facility] [id number] Thomas Mancia [id number] Brandi Mancia Notes Date Note Type Note Provider Name and Address Organization Details Recorded Time text/html Brandi presents today to establish care as new patient. She states that she has not been to a provider in years. She states that she has anxiety due to caring for her mother and worrying about her. She has been diagnosed with COPD but does not have a medical language specialist, she will go to ED or urgent care to receive her inhaler and steroids. She reports left shoulder pain that has been going on for several months. She also states that her toes are turning outwards and are not normal. Varicose veins are also present in feet and ankles. Barbara Paredes APRN [address] [facility] [facility] [address], [place], [address], [employer] 10/16/2023 12:19:32 4 text/html . Patient is a 48-year-old female morbidly obese who presents the office with multiple complaints. Patient states that she was seen by her primary care doctor and referred to my office for bilateral foot pain. Patient had previous x-rays which were reviewed she is found to have severe bilateral bunions with abduction of the metatarsophalangeal joint of the 1st, 2nd, 3rd toes bilateral. patient states that she also has significant varicosities of the lower legs she denies any calf pain or open wounds. Patient states she has wore compression stockings in the past but is non-compliant with them. Patient states she has not been seen by primary care in over 10 years. Patient does have dental issues I did recommend close follow-up with her primary care doctor. Patient denies any other complaints. Jitendra Bennett DPM [address] [facility], [facility] [address], [place], [id number], [id number] 11/27/2023 11:04:11 OBGyn Episode No OBEpisode recorded.
[2025-01-20] MEDS: ALBUTEROL SULFATE NEB 2.5 MG/3 ML INH 10 MG INHALATION (21:40)
[2025-01-20] MEDS: IPRATROPIUM BR 0.02% INH SOLN 0.5 MG/2.5 ML VIAL 2 MG INHALATION (21:40)
[2025-01-20] MEDS: SODIUM CHLORIDE 0.9% IV 1,000 ML 999 ML IV CONT (22:12)
[2025-01-20] MEDS: POTASSIUM CHLORIDE 20 MEQ ER TABLET 40 MEQ PO (22:12)
[2025-01-21] VITALS (9 sets, daily range): BP systolic 153–164; BP diastolic 86–103; PULSE 104–125; RESP 18–31; TEMP 35.9–36.9; O2SAT 92–98
--- NOTE | 2025-01-21 01:26 | ADMGEN ---
This patient, Brandi Mancia, was admitted to [facility] Surg Room 330-02. Patient/family oriented to hospital policies and general routines including ID bracelet, bed and alarms, visiting hours, pain management, procedures, bathroom and other care routines, personal items, smoking policy, room service/diet, and visiting hours. Information on how to activate the Rapid Response Team has been discussed. Patient/Family are encouraged to report perceived risks to care and to ask questions if they do not understand what they are told or what they should do.
--- NOTE | 2025-01-21 08:17 | P.CONIM_ITS ---
Assessment and Plan Assessment and plan (1) COPD with acute exacerbation: Code(s): J44.1 - Chronic obstructive pulmonary disease with (acute) exacerbation Status: Acute Assessment and Plan: * Monitor vital signs, I&Os, neuro status and patient is a fall risk * Monitor serum electrolytes, cultures and CBC * Monitor Oxygen saturation, Oxygen via NC; wean oxygen as tolerated, keep SpO2 greater than 88% * Send sputum cultures if possible * Levaquin q24H or Azithromycin 500mg * Duonebz q6H and Albuterol q2H prn * Solu-Medrol 40 mg IVq12H (2) Acute dyspnea: Code(s): R06.00 - Dyspnea, unspecified Status: Acute Assessment and Plan: * Symptoms: SOB, tachypnea, tachycardia * SpO2: 98 on RA * Suspected cause: COPD exac * ABG: pending * EKG: Tachycardia * D dimer: pending * Chest XR: No cardiopulmonary process (3) Acute hypokalemia: Code(s): E87.6 - Hypokalemia Status: Acute Assessment and Plan: * In ED: K 3.3 * Will supplement as needed * Monitor daily labs Plan Code status: Full code per patient DVT prophylaxis: Lovenox 40mg Stress ulcer prophylaxis: Not indicated PT/OT notes: PT/OT evaluation HPI Date of Consult Consult date: 01/21/25 Requesting Physician: Stefani Rogers DO Primary Care Provider: UNKNOWN,DOCTOR Consult Narrative Narrative: Brandi Mancia is a 49 year old female Review of Systems 2 Review of Systems: All systems reviewed & are unremarkable except as noted in HPI and below PMFSH Social History Social History Smoking status: Former smoker Do You Feel Safe in your Home?: Yes Lack of Transportation: No Lack of Food: Never True Current Housing: I Have Housing Concerned About Future Housing: No Difficulty Paying Gas/Electric Bills: No Difficulty Paying for Meds: No Currently Unemployed: No Education: Associate Degree Difficulty w/ Childcare or Family Care: No Spiritual care concerns: No Meds Home Medications and Allergies Home Medications ?Medication ?Instructions ?Recorded ?Confirmed ?Type azithromycin 250 mg tablet See Rx Instructions PO .COMPLEX #6 01/20/25 Rx tabs methylprednisolone 4 mg tablets in See Rx Instructions PO .COMPLEX 01/20/25 Rx a dose pack (Medrol (Gm)) #21 ea albuterol sulfate 90 mcg/actuation 1 puff inhalation PRN 01/21/25 01/21/25 History aerosol inhaler losartan 25 mg tablet 25 mg PO DAILY 01/21/25 01/21/25 History Allergies Allergy/AdvReac Type Severity Reaction Status Date / Time Penicillins Allergy Severe Rash Verified 01/21/25 01:41 Vital Signs Vital Signs - 24 hr 01/20/25 19:52 01/20/25 21:30 01/20/25 21:47 Temperature 97.5 F L 98.0 F Pulse Rate 111 H 58 L Respiratory Rate 26 H 21 H Blood Pressure 142/97 H 177/105 H Pulse Oximetry 96 94 98 Oxygen Delivery Room Air Room Air Fraction of Inspired Oxygen 21 01/20/25 22:00 01/20/25 22:30 01/20/25 23:00 Temperature Pulse Rate 101 H 98 104 H Respiratory Rate 23 H 30 H 31 H Blood Pressure 169/121 H 151/64 H 161/104 H Pulse Oximetry 100 100 95 Oxygen Delivery Fraction of Inspired Oxygen 01/20/25 23:30 01/21/25 00:08 01/21/25 00:49 Temperature Pulse Rate 107 H 110 H 104 H Respiratory Rate 27 H 31 H 28 H Blood Pressure 178/128 H 164/103 H 154/94 H Pulse Oximetry 92 95 95 Oxygen Delivery Fraction of Inspired Oxygen 01/21/25 06:00 Temperature 96.6 F L Pulse Rate 117 H Respiratory Rate 24 H Blood Pressure 154/90 H Pulse Oximetry 95 Oxygen Delivery Fraction of Inspired Oxygen Exam 2 Narrative: Gen - well appearing female in no acute respiratory distress who is nontoxic- appearing lying semi recumbent in bed HEENT - normocephalic. Atraumatic. Pupils equal round and reactive. Extraocular motions intact. Sclera clear and anicteric. Nares patent. Oropharynx was clear. No oral lesions. Moist mucous membranes. Tongue was midline. Neck - neck was supple. No dominant adenopathy, thyromegaly or masses. 2+ carotid upstrokes without bruits. Chest - Bilateral expiratory/inspiratory wheezes. No crackles. Not in acute respiratory distress CV - Tachycardic S1-S2. No murmurs gallops or rubs. Abd - abdomen was soft. Nontender. Nondistended. Positive bowel sounds. No organomegaly or masses. Ext - no clubbing, cyanosis or edema. 2+ DP pulses bilaterally. Neuro - patient is alert and oriented x4. Strength is 5/5 in both upper and lower extremities. Cranial nerves 2-12 are intact. Speech is clear. Psych - normal mood and affect. Patient is pleasant and cooperative. Skin - warm and dry. No rashes noted. Results Labs 01/20/25 20:20 01/20/25 20:20 Labs: Short CBC 01/20/25 Range/Units 20:20 WBC 9.9 (4.5-10.0) K/mm3 Hgb 13.8 (12.0-15.0) g/dL Hct 41.6 (37.0-47.0) % Plt Count 256 (150-375) k/mm3 BMP 01/20/25 20:20 Sodium 138 Potassium 3.3 L Chloride 106 Carbon Dioxide 25 BUN 8 Creatinine 0.59 L Glucose 118 H Calcium 8.7 Liver Function 01/20/25 Range/Units 20:20 Total Bilirubin 0.1 L (0.2-1.3) mg/dL AST 26 (14-36) U/L ALT 26 (6-35) U/L Alkaline Phosphatase 97 (38-126) U/L Albumin 3.6 (3.5-5.1) g/dL Quality VTE Prophylaxis VTE prophylaxis: pharmacologic ordered
--- NOTE | 2025-01-21 08:32 | P.HP_ITS ---
H&P: HPI History of Present Illness Date/Time: 01/21/25 08:32 Chief Complaint: Shortness of breath Narrative: Brandi Mancia is a 49-year-old female with a past medical history of COPD, hypertension, and anxiety who presents to the hospital for shortness of breath the past 5 days. Patient states that on Monday/Monday she started experiencing shortness of breath with exertion. She states that it improves wi th rest but does not completely go away. Denies any chest pain, diaphoresis, headache/dizziness nausea/vomiting, or abdominal pain. She does have a history of COPD and uses an albuterol inhaler at home but no rescue inhaler. Denies any relief with use of albuterol. She also endorses a nonproductive cough. Denies any fevers, chills, or known sick contacts. Denies any recent travel, pleuritic chest pain or calf pain. She reports a history of anxiety but does not take any medications and believes that this is a component to her shortness of breath as she cannot stop focusing on her symptoms and believes that makes it worse. Initial VS at presentation: 97.5F, 142/97, 111HR, 26RR, 96% RA WBC 9.9, H/H 13.8/41.6, Plt 256, Na 138, K 3.3, Cl 106, BUN 8, Cr 0.59, AST/ALT wnl, Alk phos 97 Viral Panel (-) Chest XR: No acute cardiopulmonary process. EKG: Tachycardia D-Dimer 3.19 Chest CTA pending Review of Systems Review of Systems: All systems reviewed & are unremarkable except as noted in HPI and below PMFSH Social History Social History Smoking status: Former smoker Do You Feel Safe in your Home?: Yes Lack of Transportation: No Lack of Food: Never True Current Housing: I Have Housing Concerned About Future Housing: No Difficulty Paying Gas/Electric Bills: No Difficulty Paying for Meds: No Currently Unemployed: No Education: Associate Degree Difficulty w/ Childcare or Family Care: No Spiritual care concerns: No Meds Home Medications and Allergies Home Medications ?Medication ?Instructions ?Recorded ?Confirmed ?Type azithromycin 250 mg tablet See Rx Instructions PO .COMPLEX #6 01/20/25 Rx tabs methylprednisolone 4 mg tablets in See Rx Instructions PO .COMPLEX 01/20/25 Rx a dose pack (Medrol (Gm)) #21 ea albuterol sulfate 90 mcg/actuation 1 puff inhalation PRN 01/21/25 01/21/25 History aerosol inhaler losartan 25 mg tablet 25 mg PO DAILY 01/21/25 01/21/25 History Allergies Allergy/AdvReac Type Severity Reaction Status Date / Time Penicillins Allergy Severe Rash Verified 01/21/25 01:41 Vital Signs Vital Signs - 24 hr 01/20/25 19:52 01/20/25 21:30 01/20/25 21:47 Temperature 97.5 F L 98.0 F Pulse Rate 111 H 58 L Respiratory Rate 26 H 21 H Blood Pressure 142/97 H 177/105 H Pulse Oximetry 96 94 98 Oxygen Delivery Room Air Room Air Fraction of Inspired Oxygen 21 01/20/25 22:00 01/20/25 22:30 01/20/25 23:00 Temperature Pulse Rate 101 H 98 104 H Respiratory Rate 23 H 30 H 31 H Blood Pressure 169/121 H 151/64 H 161/104 H Pulse Oximetry 100 100 95 Oxygen Delivery Fraction of Inspired Oxygen 01/20/25 23:30 01/21/25 00:08 01/21/25 00:49 Temperature Pulse Rate 107 H 110 H 104 H Respiratory Rate 27 H 31 H 28 H Blood Pressure 178/128 H 164/103 H 154/94 H Pulse Oximetry 92 95 95 Oxygen Delivery Fraction of Inspired Oxygen 01/21/25 06:00 Temperature 96.6 F L Pulse Rate 117 H Respiratory Rate 24 H Blood Pressure 154/90 H Pulse Oximetry 95 Oxygen Delivery Fraction of Inspired Oxygen Exam Narrative: Gen - well appearing female in no acute respiratory distress who is nontoxic- appearing lying semi recumbent in bed HEENT - normocephalic. Atraumatic. Pupils equal round and reactive. Extraocular motions intact. Sclera clear and anicteric. Nares patent. Oropharynx was clear. No oral lesions. Moist mucous membranes. Tongue was midline. Neck - neck was supple. No dominant adenopathy, thyromegaly or masses. 2+ carotid upstrokes without bruits. Chest - Bilateral expiratory/inspiratory wheezes. No crackles. Not in acute respiratory distress CV - Tachycardic S1-S2. No murmurs gallops or rubs. Abd - abdomen was soft. Nontender. Nondistended. Positive bowel sounds. No organomegaly or masses. Ext - no clubbing, cyanosis or edema. 2+ DP pulses bilaterally. Neuro - patient is alert and oriented x4. Strength is 5/5 in both upper and lower extremities. Cranial nerves 2-12 are intact. Speech is clear. Psych - normal mood and affect. Patient is pleasant and cooperative. Skin - warm and dry. No rashes noted. H&P: Results Labs Labs: Short CBC 01/20/25 Range/Units 20:20 WBC 9.9 (4.5-10.0) K/mm3 Hgb 13.8 (12.0-15.0) g/dL Hct 41.6 (37.0-47.0) % Plt Count 256 (150-375) k/mm3 BMP 01/20/25 20:20 Sodium 138 Potassium 3.3 L Chloride 106 Carbon Dioxide 25 BUN 8 Creatinine 0.59 L Glucose 118 H Calcium 8.7 Liver Function 01/20/25 Range/Units 20:20 Total Bilirubin 0.1 L (0.2-1.3) mg/dL AST 26 (14-36) U/L ALT 26 (6-35) U/L Alkaline Phosphatase 97 (38-126) U/L Albumin 3.6 (3.5-5.1) g/dL Assessment and Plan Assessment and plan (1) COPD with acute exacerbation: Code(s): J44.1 - Chronic obstructive pulmonary disease with (acute) exacerbation Status: Acute Assessment and Plan: * Monitor vital signs, I&Os, neuro status and patient is a fall risk * Monitor serum electrolytes, cultures and CBC * Monitor Oxygen saturation, Oxygen via NC; wean oxygen as tolerated, keep SpO2 greater than 88% * Send sputum cultures if possible * Azithromycin 500mg * Duonebz q6H and Albuterol q2H prn * Solu-Medrol 40 mg IVq12H (2) Acute dyspnea: Code(s): R06.00 - Dyspnea, unspecified Status: Acute Assessment and Plan: * Symptoms: SOB, tachypnea, tachycardia * SpO2: 98 on RA * Suspected cause: COPD exac * ABG: pending * EKG: Tachycardia * D dimer: elevated at 3.19 * Chest XR: No cardiopulmonary process * Chest CTA pending * See above for treatment/management (3) Acute hypokalemia: Code(s): E87.6 - Hypokalemia Status: Acute Assessment and Plan: * In ED: K 3.3 * Will supplement as needed * Monitor daily labs (4) Anxiety: Code(s): F41.9 - Anxiety disorder, unspecified Status: Acute Assessment and Plan: * Not on at home medications * Will offer 0.5mg PRN q6hr for generalized anxiety * May be component of Tachypnea/Tachycardia Plan Code status: Full code per patient DVT prophylaxis: Lovenox 40mg Stress ulcer prophylaxis: Not indicated PT/OT notes: PT/OT evaluation Quality VTE Prophylaxis VTE prophylaxis: pharmacologic ordered
[2025-01-21] MEDS: LOSARTAN POTASSIUM 25 MG TABLET PO (09:04)
[2025-01-21] MEDS: ENOXAPARIN 40 MG/0.4 ML SYRINGE SUB-Q (09:06)
[2025-01-21 09:07] LABS: Alveolar/Arterial O2 Gradient 32.7 mmHg; Fractional Inspired Oxygen 21 %; HCO3 ABG 22.0 mEq/l (22.0-26.0); Modified Allen's Test Pass; Oxygen Content ABG 20.1 %vol (16.0-22.0); Oxygen Saturation ABG 93.6 % (95.0-100.0); PCO2 ABG 39.3 mmHg (35.0-45.0); PO2 ABG 70.0 mmHg (80.0-100.0); PO2 FiO2 Ratio Arterial Blood 3.33 %; Site Drawn RIGHT RADIAL
[2025-01-21] MEDS: IPRATROPIUM 0.5 MG/ALBUTEROL SULFATE 2.5 MG AMPUL.NEB 3 ML INHALATION ×3 (09:10→20:51)
[2025-01-21] MEDS: AZITHROMYCIN 500 MG TABLET PO (13:12)
[2025-01-21] MEDS: SODIUM CHLORIDE 0.9% IV 1,000 ML 100 ML IV CONT (13:12)
--- NOTE | 2025-01-21 17:56 | PM.EVENT ---
Event Note Event Note Event Note: called by radiology for PE on CTA CHest Evaluated chart and patient is already on heparin drip ECHO and troponin ordered. informed primary provider
[2025-01-21] MEDS: HEPARIN SOD/D5W 100 UNITS/ML 25,000 UNITS/250 ML BAG 15 UNITS IV CONT (18:19)
[2025-01-21 18:23] LABS: Hematocrit 42.7 % (37.0-47.0); Hemoglobin 13.9 g/dL (12.0-15.0); Immature Granulocyte Percent A 0.5 % (0-0.5); Lymphocytes Absolute Auto 0.93 K/mm3 (0.9-3.2); Mean Corpuscular HGB Conc 32.6 g/dl (32-36); Mean Corpuscular Hemoglobin 31.7 pg (26-34); Mean Corpuscular Volume 97.3 fl (80-100); Nucleated Red Blood Cells Absolute Auto 0.000 K/mm3 (0.0-0.012); Nucleated Red Blood Cells Perc 0.0 % (0.0-0.2); Platelet Count Result 304 k/mm3 (150-375); Red Blood Count 4.39 M/mm3 (4.2-5.4); White Blood Count 22.0 K/mm3 (4.5-10.0)
[2025-01-21 18:44] LABS: Schistocytes None Seen
[2025-01-21 18:45] LABS: INR 1.0; Prothrombin Time 13.3 Seconds (11.1-14.7)
[2025-01-21 18:46] LABS: Partial Thromboplastin Time 26.7 Seconds (22.3-36.8)
[2025-01-22] VITALS (15 sets, daily range): BP systolic 136–157; BP diastolic 85–96; PULSE 100–121; RESP 14–24; TEMP 35.9–36.4; O2SAT 93–98
--- NOTE | 2025-01-22 | ECHO_ITS ---
Patient Info Name: Brandi Mancia Age: 49 years : 1975 Gender: Female Ht: 66 in Wt: 250 lbs BSA: 2.35 m2 HR: 108 bpm BP: 152 / 96 mmHg Technical Quality: Good Exam Date: 01/22/2025 11:10 AM Patient Status: I Admit Date: 01/22/2025 Exam Type: CA echo doppler color flow Complete two-dimensional, color flow and Doppler transthoracic echocardiogram is performed. Staff Referring Physician: Stefani Rogers DO Monogram Machine Operator: Kendra Jeronimo Attending Provider: Micheal Nicolas Summary 1. Complete two-dimensional, color flow and Doppler transthoracic echocardiogram is performed. 2. The left ventricle is normal in size and systolic function. There is mild concentric left ventricular hypertrophy. The left ventricular ejection fraction is visually estimated to be 60-65%. 3. The right ventricle is dilated with reduced systolic function. There is a Loera sign suggestive of RV strain. 4. There is left ventricular septal flattening during systole suggestive of pressure overload. Left Ventricle The left ventricle is normal in size and systolic function. There is mild concentric left ventricular hypertrophy. The left ventricular ejection fraction is visually estimated to be 60-65%. Right Ventricle The right ventricle is dilated with reduced systolic function. There is a Loera sign suggestive of RV strain. Ventricular Septum There is left ventricular septal flattening during systole suggestive of pressure overload. Left Atria The left atrium is normal size. Right Atria The right atrium is normal size. Aortic Valve The aortic valve is trileaflet and opens well. There is no aortic regurgitation. Pulmonic Valve The pulmonic valve is not well visualized. There is no color Doppler evidence of pulmonic valve regurgitation. Mitral Valve The mitral valve is normal. There is no mitral regurgitation. Tricuspid Valve The tricuspid valve is normal. There is trace tricuspid regurgitation. Aorta The aortic root at the level of the sinus of Valsalva measures 2.9 cm in diameter. Left Ventricular Outflow Tract Name Value Normal LVOT 2D LVOT Diameter 2.0 cm LVOT Doppler LVOT Peak Velocity 132 cm/s LVOT Peak Gradient 7 mmHg LVOT Mean Gradient 3 mmHg LVOT VTI 17 cm LVOT VTI/AV VTI Ratio 0.8 LVOT Stroke Volume 53 ml LVOT CO 5.6 l/min LVOT CI 2.4 l/min/m2 Pulmonic Valve Name Value Normal PV Doppler PV Peak Velocity 103 cm/s PV Peak Gradient 4 mmHg Tricuspid Valve Name Value Normal TV Annular TDI TV Lateral Danni s' Velocity 15.8 cm/s >=9.5 Aortic Valve Name Value Normal AV Doppler AV Peak Velocity 151 cm/s AV Peak Gradient 9 mmHg AV Mean Gradient 5 mmHg AV VTI 21 cm AV Area (Cont Eq VTI) 2.5 cm2 >=3.0 AV Area (Cont Eq Ruben) 2.8 cm2 AV DI (Ruben) 0.87 AV Regurgitation 2D LVOT Area 3.2 cm2 Ventricles Name Value Normal LV Dimensions 2D/MM IVS Diastolic Thickness (2D) 1.4 cm 0.6-1.0 LVID Diastole (2D) 4.7 cm 3.8-5.2 LVIW Diastolic Thickness (2D) 1.3 cm 0.6-0.9 LVID Systole (2D) 3.8 cm 2.2-3.5 LVOT Diameter 2.0 cm LV Mass (2D Cubed) 248.47 g 67.00-162.00 LV Mass Index (2D Cubed) 106 g/m2 43-95 Relative Wall Thickness (2D) 0.55 <=0.42 LV Fractional Shortening/Ejection Fraction 2D/MM LV Fractional Shortening (2D) 18 % 27-45 LV EF (2D Teichholz) 38 % LV Diastolic Volume (4C MOD) 121 ml LV EF (4C MOD) 54 % LV Diastolic Volume (2C MOD) 100 ml LV EF (2C MOD) 57 % LV Diastolic Volume (BP MOD) 111 ml 46-106 LV Diastolic Volume Index (BP MOD) 47 ml/m2 29-61 LV Systolic Volume (BP MOD) 50 ml 14-42 LV Systolic Volume Index (BP MOD) 21 ml/m2 8-24 LV EF (BP MOD) 55 % 54-74 LV Diastolic Length (4C) 8.9 cm LV Systolic Length (4C) 7.4 cm LV Stroke Volume (4C MOD) 65 ml Atria Name Value Normal LA Dimensions LA Volume (4C A-L) 46 ml LA Volume (BP A-L) 44 ml RA Dimensions RA Systolic Major [place] Length (4C) 4.3 cm 2.2-2.8 RA Area (4C) 12.2 cm2 <=18.0 Report Signatures
[2025-01-22 00:49] LABS: Partial Thromboplastin Time 52.0 Seconds (22.3-36.8)
[2025-01-22] MEDS: IPRATROPIUM 0.5 MG/ALBUTEROL SULFATE 2.5 MG AMPUL.NEB 3 ML INHALATION ×4 (02:07→22:25)
[2025-01-22 06:14] LABS: Hematocrit 43.1 % (37.0-47.0); Hemoglobin 13.9 g/dL (12.0-15.0); Immature Granulocyte Percent A 0.6 % (0-0.5); Lymphocytes Absolute Auto 1.89 K/mm3 (0.9-3.2); Mean Corpuscular HGB Conc 32.3 g/dl (32-36); Mean Corpuscular Hemoglobin 32.0 pg (26-34); Mean Corpuscular Volume 99.1 fl (80-100); Nucleated Red Blood Cells Absolute Auto 0.000 K/mm3 (0.0-0.012); Nucleated Red Blood Cells Perc 0.0 % (0.0-0.2); Platelet Count Result 290 k/mm3 (150-375); Red Blood Count 4.35 M/mm3 (4.2-5.4); White Blood Count 24.3 K/mm3 (4.5-10.0)
[2025-01-22 07:05] LABS: Troponin I < 0.012 ng/mL (0.000-0.034)
--- NOTE | 2025-01-22 08:48 | P.PNIM_ITS ---
Progress Note: A&P Assessment and Plan (1) COPD with acute exacerbation: Code(s): J44.1 - Chronic obstructive pulmonary disease with (acute) exacerbation Status: Acute Assessment and Plan: Wheezing in the ED, now resolved * Monitor vital signs, I&Os, neuro status and patient is a fall risk * Monitor serum electrolytes, cultures and CBC * Monitor Oxygen saturation, Oxygen via NC; wean oxygen as tolerated, keep SpO2 greater than 88% * Send sputum cultures if possible * Azithromycin 500mg x3 * Duonebz q6H and Albuterol q2H prn * Solu-Medrol 40 mg IVq12H, change to prednisone 40 daily x4 more days (2) Acute dyspnea: Code(s): R06.00 - Dyspnea, unspecified Status: Acute Assessment and Plan: Symptoms: SOB, tachypnea, tachycardia. SpO2: 98 on RA. Tachycardic on exam 100- 120 7.366/pCO2 39.3/pO2 70/ABG HCO3 22/O2 93.6 * EKG: Tachycardia * D dimer: elevated at 3.19 * Chest XR: No cardiopulmonary process * CTA showed a PE with right ventricular strain * Trending troponin. NTproBNP elevated, 1560 * Started on lovenox, then started heparin drip. Developed flushing so stopped anticoagulation and starting Arixtra at 9pm after discussing dose and timing with pharmacy. * See above for treatment/management (3) Acute hypokalemia: Code(s): E87.6 - Hypokalemia Status: Acute Assessment and Plan: * In ED: K 3.3, repeat 4 * Will supplement as needed * Monitor daily labs (4) Anxiety: Code(s): F41.9 - Anxiety disorder, unspecified Status: Acute Assessment and Plan: * Not on at home medications * Lorazepam 0.5mg PRN q6hr for generalized anxiety * May be component of Tachypnea/Tachycardia (5) Elevated white blood cell count: Code(s): D72.829 - Elevated white blood cell count, unspecified Status: Acute Assessment and Plan: WBC 24.3 up from 9 on 01/20. Has been on solumedrol, trending down (6) Facial flushing: Code(s): R23.2 - Flushing Status: Acute Assessment and Plan: Flushing to face and chest this morning. Concern for possible mild reaction to heparin is on the differential so changed to Arixtra. Flushing improving off heparin. Platelet count stable --Arixtra 10mg hs --No itching with flushing (7) Acute pulmonary embolism: Code(s): I26.99 - Other pulmonary embolism without acute cor pulmonale Status: Acute Assessment and Plan: Spoke with the radiologist who read the CT and he reported that she had multiple segmental and subsegmental PE's 01/21 CTA 1. Pulmonary embolism with right ventricular strain. 2. Groundglass appearance is seen in both lower lobes and both upper lobes which may indicate atelectasis versus pneumonia versus pulmonary edema. Clinical correlation and follow-up advised. --Consult cardiology for recommendations given right heart strain --Not requiring oxygen and blood pressure normal. HR still elevated, but has been stable, 100-120's --Would want to transfer to [facility] if new oxygen requirement or hemodynamic changes --Repeat troponin with next labs --Add on mag and phos to afternoon labs Plan Code status: Full code per patient DVT prophylaxis: Changing to arixtra Stress ulcer prophylaxis: Start PPI PT/OT notes: PT/OT evaluation Time Spent With Patient Time: 69 minutes Subjective Date/time seen: 01/22/25 07:20 PM Interval history: 49 y/o female admitted for a COPD exacerbation, treating with steroids, nebs and azithromycin, here with a PE with right heart strain Shortness of breath improving but still tachycardic. Dyspnea with activity improved per at bedside. No chest pain. Not on oxygen. Waiting for TTE. BNP elevated. Repeat troponin negative. LE dopplers showed thrombosis in the left peroneal and posterior tibial veins. Flushing on exam this morning, no itching. Unclear cause but concerning for anaphylactoid reaction to heparin. Improving tonight off heparin on reevaluation. Discussed with pharmacy and changed to Arixtra 10mg (Fondiparinux), starting tonight since she received a dose of lovenox this morning. Exam Narrative: Gen - well appearing female in no acute respiratory distress who is nontoxic- appearing lying semi recumbent in bed HEENT - normocephalic. Atraumatic. Pupils equal round and reactive. Extraocular motions intact. Sclera clear and anicteric. Nares patent. Oropharynx was clear. No oral lesions. Moist mucous membranes. Tongue was midline. Neck - neck was supple. No dominant adenopathy, thyromegaly or masses. 2+ carotid upstrokes without bruits. Chest - No wheezes No crackles. Slightly increased work of breathing CV - Tachycardic S1-S2. No murmurs gallops or rubs. Abd - abdomen was soft. Nontender. Nondistended. Positive bowel sounds. No organomegaly or masses. Ext - no clubbing, cyanosis LLE edema. 2+ DP pulses bilaterally. Neuro - patient is alert and oriented x4. Strength is 5/5 in both upper and lower extremities. Cranial nerves 2-12 are intact. Speech is clear. Psych - normal mood and affect. Patient is pleasant and cooperative. Skin - warm and dry. Flushing to face and chest noted. Objective Data Vital Signs Vital Signs: Vital Signs - 24 hr 01/21/25 09:00 01/21/25 09:22 01/21/25 13:57 Temperature Pulse Rate 125 H 124 H Respiratory Rate 24 H 24 H Blood Pressure Pulse Oximetry Oxygen Delivery Room Air 01/21/25 13:57 01/21/25 20:00 01/21/25 20:15 Temperature 98.4 F Pulse Rate 124 H 118 H 114 H Respiratory Rate 18 Blood Pressure 153/86 H Pulse Oximetry 98 94 Oxygen Delivery Room Air 01/21/25 20:51 01/21/25 20:51 01/21/25 20:58 Temperature Pulse Rate 115 H 115 H 114 H Respiratory Rate 24 H 24 H Blood Pressure Pulse Oximetry 92 Oxygen Delivery Room Air 01/21/25 21:45 01/22/25 00:00 01/22/25 02:07 Temperature Pulse Rate 109 H 107 H Respiratory Rate 20 Blood Pressure Pulse Oximetry Oxygen Delivery Room Air 01/22/25 02:18 01/22/25 04:00 01/22/25 04:40 Temperature 97.3 F L Pulse Rate 111 H 103 H 101 H Respiratory Rate 22 H 16 Blood Pressure 157/95 H Pulse Oximetry 95 Oxygen Delivery 01/22/25 05:35 01/22/25 07:36 01/22/25 07:36 Temperature 96.7 F L Pulse Rate 108 H 102 H Respiratory Rate 18 20 Blood Pressure 152/96 H Pulse Oximetry 95 94 Oxygen Delivery Room Air 01/22/25 07:47 Temperature Pulse Rate 101 H Respiratory Rate 22 H Blood Pressure Pulse Oximetry Oxygen Delivery Intake/Output Intake/Output: Intake & Output 01/19/25 01/20/25 01/21/25 01/22/25 23:59 23:59 23:59 23:59 Intake Total 1000 680 626.3 Balance 1000 680 626.3 Meds/Results Medications: Active Medications Generic Name Dose Route Start Last Admin Trade Name Freq PRN Reason Stop Dose Admin Albuterol 2.5 mg 01/21/25 08:21 Albuterol Sulfate Neb 2.5 Mg/3 Ml Inh INHALATION Q4HRT PRN Shortness Of Breath Albuterol/Ipratropium 3 ml 01/21/25 08:00 01/22/25 07:36 Ipratropium 0.5 Mg/Albuterol Sulfate 2.5 Mg Ampul.Neb 3 Ml INHALATION 3 ml Q6HRT BONNY Administration Azithromycin 500 mg 01/21/25 09:00 01/21/25 13:12 Azithromycin 500 Mg Tablet PO 500 mg DAILY BONNY Administration Enoxaparin Sodium 40 mg 01/21/25 09:00 01/21/25 09:06 Enoxaparin 40 Mg/0.4 Ml Syringe SUB-Q 40 mg DAILY BONNY Administration Heparin Sodium (Porcine) 6,500 units 01/21/25 17:22 01/22/25 02:42 Heparin Sodium 5,000 Units/Ml Vial IV PUSH 6,500 units PRN PRN Administration aPTT less than 55 seconds Heparin Sodium (Porcine) 3,000 units 01/21/25 17:22 Heparin Sodium 5,000 Units/Ml Vial IV PUSH PRN PRN aPTT 55 - 70 seconds Heparin Sodium/Dextrose 25,000 units in 250 mls @ 18 mls/hr 01/21/25 17:25 01/22/25 02:44 Heparin Sodium/D5w 100 Units/Ml IV CONT 1,800 units/hr .[id number] BONNY 18 mls/hr Titration Protocol 1,800 UNITS/HR Lorazepam 0.5 mg 01/21/25 13:07 Lorazepam Inj (*Crx) 2 Mg/Ml Vial IV PUSH Q6H PRN Anxiety Losartan Potassium 25 mg 01/21/25 09:00 01/21/25 09:04 Losartan Potassium 25 Mg Tablet PO 25 mg DAILY BONNY Administration Methylprednisolone Sodium Succinate 40 mg 01/21/25 08:21 01/21/25 09:08 Methylprednisolone Sod Succ 40 Mg Vial IV PUSH 40 mg Q12HR PRN Administration Shortness Of Breath Perflutren Lipid Microsphere 0 ml 01/21/25 17:55 Perflutren Lipid Microspheres 1.5 Ml Vial Diluted To 10 Ml Total Volume IV PUSH 01/24/25 17:55 ONCE PRN adequate visualization Protocol Radiology Results: ITS Impressions Chest X-Ray 01/20/25 20:26 IMPRESSION: No acute cardiopulmonary process. Chest CTA 01/21/25 16:21 IMPRESSION: 1. Pulmonary embolism with right ventricular strain. 2. Groundglass appearance is seen in both lower lobes and both upper lobes which may indicate atelectasis versus pneumonia versus pulmonary edema. Clinical correlation and follow-up advised. I called the hospitalist office multiple times with no success and left a message on the voicemail. ADDENDUM: 01/21/25 0416 the hospitalist on-call was notified with the result of the patient at 5:55 PM on January 21, 2025. Labs Labs: Laboratory Results - last 24 hr 01/21/25 01/21/25 01/21/25 08:58 09:00 17:59 WBC 22.0 H RBC 4.39 Hgb 13.9 Hct 42.7 MCV 97.3 MCH 31.7 MCHC 32.6 RDW 11.9 Plt Count 304 MPV 10.0 Immature Gran % (Auto) 0.5 Neut % (Auto) 92.0 H Lymph % (Auto) 4.2 L Stokes % (Auto) 3.2 Eos % (Auto) 0.0 Baso % (Auto) 0.1 L Lymph # (Auto) 0.93 Stokes # (Auto) 0.7 H Eos # (Auto) 0.0 Baso # (Auto) 0.0 Abs Immat Gran (auto) 0.12 H Absolute Neuts (auto) 20.2 H Absolute Nucleated RBC 0.000 Band Neutrophils % Not Reportable Nucleated RBC % 0.0 Platelet Estimate Adequate Schistocytes None seen PT 13.3 INR 1.0 APTT 26.7 D-Dimer 3.19 H Puncture Site Right radial ABG pH 7.366 ABG pCO2 39.3 ABG pO2 70.0 L ABG PO2/FiO2 Ratio 3.33 ABG HCO3 22.0 ABG O2 Saturation 93.6 L ABG O2 Content 20.1 ABG Base Excess -3.0 A-a Gradient 32.7 Oxyhemoglobin 93.9 Total Hemoglobin 15.2 O2 Delivery Device Room air O2 Liters/Min Not Reportable FiO2 21 Troponin I 01/22/25 01/22/25 01/22/25 00:17 05:59 06:38 WBC 24.3 H RBC 4.35 Hgb 13.9 Hct 43.1 MCV 99.1 MCH 32.0 MCHC 32.3 RDW 12.1 Plt Count 290 MPV 10.2 Immature Gran % (Auto) 0.6 H Neut % (Auto) 85.8 H Lymph % (Auto) 7.8 L Stokes % (Auto) 5.7 Eos % (Auto) 0.0 Baso % (Auto) 0.1 L Lymph # (Auto) 1.89 [place] # (Auto) 1.4 H Eos # (Auto) 0.0 Baso # (Auto) 0.0 Abs Immat Gran (auto) 0.15 H Absolute Neuts (auto) 20.9 H Absolute Nucleated RBC 0.000 Band Neutrophils % Nucleated RBC % 0.0 Platelet Estimate Schistocytes PT INR APTT 52.0 H D-Dimer Puncture Site ABG pH ABG pCO2 ABG pO2 ABG PO2/FiO2 Ratio ABG HCO3 ABG O2 Saturation ABG O2 Content ABG Base Excess A-a Gradient Oxyhemoglobin Total Hemoglobin O2 Delivery Device O2 Liters/Min FiO2 Troponin I < 0.012 Quality VTE Prophylaxis VTE prophylaxis: pharmacologic ordered Hospitalist MIPS Advance Care Plan I have confirmed that the patient's Advanced Care Plan is present, code status is documented, or surrogate decision maker is listed in patient medical record.: Yes Medication Reconciliation I have utilized all available resources to obtain, update and review the patien ts current medications (includes all prescriptions, OTC, herbals, cannabis, and nutritional supplements).: Yes
[2025-01-22 08:57] LABS: Partial Thromboplastin Time 89.6 Seconds (22.3-36.8)
[2025-01-22] MEDS: AZITHROMYCIN 500 MG TABLET PO (09:49)
[2025-01-22] MEDS: ENOXAPARIN 40 MG/0.4 ML SYRINGE SUB-Q (09:50)
[2025-01-22] MEDS: LOSARTAN POTASSIUM 25 MG TABLET PO (09:50)
[2025-01-22] MEDS: HEPARIN SOD/D5W 100 UNITS/ML 25,000 UNITS/250 ML BAG 18 UNITS IV CONT (09:54)
[2025-01-22 15:17] LABS: Partial Thromboplastin Time 68.6 Seconds (22.3-36.8)
--- NOTE | 2025-01-22 16:25 | PM.CNCAR ---
Assessment and Plan Assessment and plan (1) Pulmonary embolism: Code(s): I26.99 - Other pulmonary embolism without acute cor pulmonale Status: Acute (2) Acute hypokalemia: Code(s): E87.6 - Hypokalemia Status: Acute Plan -Pulmonary embolism noted on CT chest-etiology unclear -Allergy to heparin with flashing on face and neck -Shortness of breath secondary to PE -Tachycardia secondary to PE -Right heart strain noted on CT chest Plan: -She is PE SI class 1; no hypotension (she has normal to hypertensive); troponin is negative-overall low risk PE and can be treated with anticoagulation any RV dysfunction noted on echo or her clinical status changes -CT chest report some RV strain. Recommend stat echo to evaluate for RV dysfunction -Recommend trend troponin x2 -Check NT proBNP -Recommend anticoagulation for treatment of PE as you doing with fondaparinux given heparin allergy -Lower extremity ultrasound to evaluate for DVT -She reports family history of blood clots. Heme oncology consult to evaluate further -Check and replace electrolytes to keep potassium greater than 4 and magnesium greater than 2 -Oxygen as needed to keep sats greater than 90% History of Present Illness History of Present Illness Consult date/time: 01/22/25 16:25 Reason For Visit: COPD exacerbations Narrative: 49-year-old female with past medical history of COPD, hypertension, and anxiety presents with chief complaint of shortness of breath for 5 days. She 1st noticed shortness of breath with exertion few days back which improved with rest but did not go away completely. She has COPD and uses an albuterol inhaler at home but no rescue inhaler. She did not get relief with use of albuterol. She reports a nonproductive cough. She denies any chest pain, sweating, diaphoresis, palpitations, dizziness, presyncope, syncope, recent weight gain, leg swelling, orthopnea, PND, fevers, chills, recent sick contacts, recent travel, leg pain, nausea, emesis, abdominal pain. Patient reports family history of blood clots. Workup showed PE with right ventricular strain on CT chest. Troponin is negative. EKG shows sinus tachycardia and poor R-wave progression. She was started on heparin for anticoagulation. However she developed flushing on skin of her face and neck. Heparin was stopped. Fundaparinux ordered. Cardiology is consulted given right heart strain on CT. Plan: WBC: 24.3 D dimer: 3.19 Potassium: 3.3 Troponin: Negative x1 TTE: Pending Lower extremity ultrasound: Pending EKG: Sinus tachycardia with rate of 101, poor R-wave progression Chest x-ray: No acute cardiopulmonary pathology CT chest:1. Pulmonary embolism with right ventricular strain. 2. Groundglass appearance is seen in both lower lobes and both upper lobes which may indicate atelectasis versus pneumonia versus pulmonary edema. Clinical correlation and follow-up advised. Review of Systems Review of Systems: Complete review of systems was performed and pertinent positives are reported in the [facility] Social History Social History Smoking status: Former smoker Do You Feel Safe in your Home?: Yes Lack of Transportation: No Lack of Food: Never True Current Housing: I Have Housing Concerned About Future Housing: No Difficulty Paying Gas/Electric Bills: No Difficulty Paying for Meds: No Currently Unemployed: No Education: Associate Degree Difficulty w/ Childcare or Family Care: No Spiritual care concerns: No Meds Home Medications and Allergies Home Medications ?Medication ?Instructions ?Recorded ?Confirmed ?Type azithromycin 250 mg tablet See Rx Instructions PO .COMPLEX #6 01/20/25 Rx tabs methylprednisolone 4 mg tablets in See Rx Instructions PO .COMPLEX 01/20/25 Rx a dose pack (Medrol (Gm)) #21 ea albuterol sulfate 90 mcg/actuation 1 puff inhalation PRN 01/21/25 01/21/25 History aerosol inhaler losartan 25 mg tablet 25 mg PO DAILY 01/21/25 01/21/25 History Allergies Allergy/AdvReac Type Severity Reaction Status Date / Time Penicillins Allergy Severe Rash Verified 01/21/25 01:41 Vital Signs Vital Signs - 24 hr 01/21/25 20:00 01/21/25 20:15 01/21/25 20:51 Temperature 36.9 C Pulse Rate 118 H 114 H 115 H Respiratory Rate 18 24 H Blood Pressure 153/86 H Pulse Oximetry 94 Oxygen Delivery 01/21/25 20:51 01/21/25 20:58 01/21/25 21:45 Temperature Pulse Rate 115 H 114 H Respiratory Rate 24 H Blood Pressure Pulse Oximetry 92 Oxygen Delivery Room Air Room Air 01/22/25 00:00 01/22/25 02:07 01/22/25 02:18 Temperature Pulse Rate 109 H 107 H 111 H Respiratory Rate 20 22 H Blood Pressure Pulse Oximetry Oxygen Delivery 01/22/25 04:00 01/22/25 04:40 01/22/25 05:35 Temperature 36.3 C L 35.9 C L Pulse Rate 103 H 101 H 108 H Respiratory Rate 16 18 Blood Pressure 157/95 H 152/96 H Pulse Oximetry 95 95 Oxygen Delivery 01/22/25 07:36 01/22/25 07:36 01/22/25 07:47 Temperature Pulse Rate 102 H 101 H Respiratory Rate 20 22 H Blood Pressure Pulse Oximetry 94 Oxygen Delivery Room Air 01/22/25 08:00 01/22/25 08:00 01/22/25 09:19 Temperature Pulse Rate 113 H Respiratory Rate Blood Pressure Pulse Oximetry Oxygen Delivery Room Air Room Air 01/22/25 13:41 01/22/25 13:51 01/22/25 13:53 Temperature 35.9 C L Pulse Rate 100 107 H 121 H Respiratory Rate 22 H 24 H 18 Blood Pressure 137/85 Pulse Oximetry 96 Oxygen Delivery Exam Narrative: General: Alert oriented x3, no acute distress Neck: Supple, no JVD Chest: Bilaterally clear to auscultation, no rales or rhonchi Cardiac: S1, S2 +, tachycardia, regular rhythm, no murmurs or rubs Extremities: Bilateral lower extremity edema 1+, no skin rash Neurologic: Alert and oriented x3, no focal neurological deficits Results Labs and Meds 01/22/25 05:59 01/20/25 20:20 Lab results: Cardiac Enzymes 01/22/25 Range/Units 06:38 Troponin I < 0.012 (0.000-0.034) ng/mL Coagulation 01/21/25 01/22/25 01/22/25 Range/Units 17:59 00:17 08:36 PT 13.3 (11.1-14.7) Seconds APTT 26.7 52.0 H 89.6 H (22.3-36.8) Seconds 01/22/25 Range/Units 14:59 PT (11.1-14.7) Seconds APTT 68.6 H (22.3-36.8) Seconds CBC 01/21/25 01/22/25 Range/Units 17:59 05:59 WBC 22.0 H 24.3 H (4.5-10.0) K/mm3 RBC 4.39 4.35 (4.2-5.4) M/mm3 Hgb 13.9 13.9 (12.0-15.0) g/dL Hct 42.7 43.1 (37.0-47.0) % Plt Count 304 290 (150-375) k/mm3 Lymph # (Auto) 0.93 1.89 (0.9-3.2) K/mm3 [place] # (Auto) 0.7 H 1.4 H (0.1-0.6) K/mm3 Eos # (Auto) 0.0 0.0 (0-0.3) K/mm3 Baso # (Auto) 0.0 0.0 (0.0-0.1) K/mm3 Intake and Output 01/22/25 01/22/25 01/22/25 07:59 15:59 23:59 Intake Total 626.3 483.7 Balance 626.3 483.7 Intake: IV 126.3 123.7 Heparin Sod/D5w 100 Units/ml 25 126.3 123.7 ,000 units In 250 ml @ 1,800 UNITS/HR 18 mls/hr IV CONT . [id number] [facility] Rx#:[id number] Oral 500 360 Other: # Unmeasured Voids 3 Number of Bowel Movements Today 1
[2025-01-22 17:44] LABS: Hematocrit 40.8 % (37.0-47.0); Hemoglobin 13.3 g/dL (12.0-15.0); Immature Granulocyte Percent A 0.6 % (0-0.5); Lymphocytes Absolute Auto 4.31 K/mm3 (0.9-3.2); Mean Corpuscular HGB Conc 32.6 g/dl (32-36); Mean Corpuscular Hemoglobin 31.9 pg (26-34); Mean Corpuscular Volume 97.8 fl (80-100); Nucleated Red Blood Cells Absolute Auto 0.000 K/mm3 (0.0-0.012); Nucleated Red Blood Cells Perc 0.0 % (0.0-0.2); Platelet Count Result 296 k/mm3 (150-375); Red Blood Count 4.17 M/mm3 (4.2-5.4); White Blood Count 19.2 K/mm3 (4.5-10.0)
[2025-01-22 17:49] LABS: Anion Gap 6 mmol/L (4-12); Blood Urea Nitrogen 19 mg/dL (7-17); Calcium 8.5 mg/dL (8.4-10.2); Carbon Dioxide 27 mmol/L (22-30); Chloride 103 mmol/L (98-107); Estimated CRCL calculation 118 ml/min; Estimated Glomerular Filt Rate > 60; Glucose 130 mg/dL (65-110); Potassium 4.0 mmol/L (3.4-5.0); Sodium 136 mmol/L (137-145)
[2025-01-22 18:01] LABS: NT Pro B Type Natriuretic Pept 1560 pg/mL (19.9-100); Troponin I < 0.012 ng/mL (0.000-0.034)
[2025-01-22] MEDS: FONDAPARINUX SODIUM 5 MG/0.4 ML SYRINGE 10 MG SUB-Q (20:59)
[2025-01-22 21:06] LABS: Magnesium 2.0 mg/dL (1.6-2.3)
[2025-01-23] VITALS (16 sets, daily range): BP systolic 127–160; BP diastolic 65–94; PULSE 76–117; RESP 18–24; TEMP 36.2–37.5; O2SAT 91–95
--- NOTE | 2025-01-23 00:52 | PC.NURSE ---
Hospitalists called due to pt having a reaction to new prescription of fondaparinux (Arixtra 10 mg SQ). Pt started on Arixtra because heparin drip was DCed in the afternoon due to pt having a reaction to the medication as well, mainly becoming flushed in the face and anterior chest. After approx. 10 minutes of administering Arixtra pt complaining that she was seeing black spots in her vision. Pt asked for lights to be turned on since it was completely dark in her room. Pt said vision had improved with lights on. After 5 minutes, pt called the nurses station again, stating she was feeling dizzy. Assessment redone on her and pt was weaker than before and did appear slightly flushed in the face with no rash. Pt not c/o numbness/tingling to extremities, speech is clear, and face is symmetrical. Initially called hospitalist, Laura Watson @ [phone], and she stated she did not know what to do. Laura asked me to contact the next hospitalist for possible intervention. Dr. Rogers contacted @ [phone]. Provider gave orders for Arixtra to be held and provider put in an order for STAT brain CT to check for possible brain bleed.
[2025-01-23] MEDS: IPRATROPIUM 0.5 MG/ALBUTEROL SULFATE 2.5 MG AMPUL.NEB 3 ML INHALATION ×4 (02:44→19:59)
[2025-01-23 05:56] LABS: Hematocrit 44.3 % (37.0-47.0); Hemoglobin 14.2 g/dL (12.0-15.0); Immature Granulocyte Percent A 0.5 % (0-0.5); Lymphocytes Absolute Auto 3.91 K/mm3 (0.9-3.2); Mean Corpuscular HGB Conc 32.1 g/dl (32-36); Mean Corpuscular Hemoglobin 31.8 pg (26-34); Mean Corpuscular Volume 99.3 fl (80-100); Nucleated Red Blood Cells Absolute Auto 0.000 K/mm3 (0.0-0.012); Nucleated Red Blood Cells Perc 0.0 % (0.0-0.2); Platelet Count Result 294 k/mm3 (150-375); Red Blood Count 4.46 M/mm3 (4.2-5.4); White Blood Count 12.2 K/mm3 (4.5-10.0)
[2025-01-23 06:04] LABS: Anion Gap 8 mmol/L (4-12); Blood Urea Nitrogen 19 mg/dL (7-17); Calcium 8.8 mg/dL (8.4-10.2); Carbon Dioxide 28 mmol/L (22-30); Chloride 101 mmol/L (98-107); Estimated CRCL calculation 109 ml/min; Estimated Glomerular Filt Rate > 60; Glucose 102 mg/dL (65-110); Potassium 4.2 mmol/L (3.4-5.0); Sodium 137 mmol/L (137-145)
[2025-01-23] MEDS: PANTOPRAZOLE 40 MG TABLET PO ×2 (06:04→09:38)
--- NOTE | 2025-01-23 07:15 | P.PNCA_ITS ---
Progress Note: A&P Assessment and Plan (1) Acute pulmonary embolism: Code(s): I26.99 - Other pulmonary embolism without acute cor pulmonale Status: Acute (2) DVT (deep venous thrombosis): Code(s): I82.409 - Acute embolism and thrombosis of unspecified deep veins of unspecified lower extremity Status: Acute Plan -Pulmonary embolism-source is DVT -DVT- thrombosis in the left peroneal and posterior tibial veins -Elevated NT proBNP -Allergy to heparin with flushing of face and neck -Shortness of breath secondary to PE -Tachycardia secondary to PE -Right heart strain noted on CT chest Plan: -The patient is intermediate high risk PE (segmental and subsegmental): no hemodynamic instability; sPESI>1 (COPD, tachycardia>110); troponin negative but elevated NT proBNP indicating RV strain; TTE shows dilated RV with reduced systolic function with Loera sign suggestive of RV strain + LV septal flattening during systole suggestive of pressure overload -Recommend transfer to higher facility for evaluation for thrombolysis/thrombectomy -Continue anticoagulation with fondaparinux (heparin allergy-flushing of face a nd neck) -She reports family history of blood clots. Heme oncology consult to evaluate further -Check and replace electrolytes to keep potassium greater than 4 and magnesium greater than 2 -Oxygen as needed to keep sats greater than 90% Subjective Date/time seen: 01/23/25 07:15 Interval history: Reason for encounter: PE, right heart strain noted on CT chest Interval history: No chest pain, shortness of breath, dizziness, palpitations. She is on room air. Review of Systems Cardiovascular: Comments: As per HPI Respiratory: Comments: As per HPI Exam Narrative: General: Alert oriented x3, no acute distress Neck: Supple, flushing of the skin on face and neck decreasing Chest: Bilaterally clear to auscultation, no rales or rhonchi Cardiac: S1, S2 +, regular rate, regular rhythm, no murmurs or rubs Extremities: Bilateral lower extremity edema 1+, no skin rash Neurologic: Alert and oriented x3, no focal neurological deficits Objective Data Vital Signs Vital Signs: Vital Signs - 24 hr 01/22/25 07:36 01/22/25 07:36 01/22/25 07:47 Temperature Pulse Rate 102 H 101 H Respiratory Rate 20 22 H Blood Pressure Pulse Oximetry 94 Oxygen Delivery Room Air 01/22/25 08:00 01/22/25 08:00 01/22/25 09:19 Temperature Pulse Rate 113 H Respiratory Rate Blood Pressure Pulse Oximetry Oxygen Delivery Room Air Room Air 01/22/25 12:00 01/22/25 13:41 01/22/25 13:51 Temperature Pulse Rate 114 H 100 107 H Respiratory Rate 22 H 24 H Blood Pressure Pulse Oximetry Oxygen Delivery 01/22/25 13:53 01/22/25 20:00 01/22/25 20:00 Temperature 35.9 C L 35.9 C L Pulse Rate 121 H 105 H 109 H Respiratory Rate 18 24 H Blood Pressure 137/85 146/91 H Pulse Oximetry 96 93 Oxygen Delivery 01/22/25 20:46 01/22/25 22:35 01/23/25 00:00 Temperature 36.4 C Pulse Rate 115 H 101 H Respiratory Rate 14 Blood Pressure 136/85 Pulse Oximetry 98 Oxygen Delivery Room Air 01/23/25 00:55 01/23/25 02:44 01/23/25 04:00 Temperature 36.2 C L Pulse Rate 107 H 115 H 115 H Respiratory Rate 24 H 18 Blood Pressure 141/91 H Pulse Oximetry 92 Oxygen Delivery 01/23/25 04:00 Temperature 36.2 C L Pulse Rate 102 H Respiratory Rate 20 Blood Pressure 127/65 Pulse Oximetry 91 Oxygen Delivery Intake/Output Intake/Output: Intake & Output 01/20/25 01/21/25 01/22/25 01/23/25 23:59 23:59 23:59 23:59 Intake Total 1086 747 0600.0 300 Balance 1821 194 5086.0 300 Meds/Results Medications: Active Medications Generic Name Dose Route Start Last Admin Trade Name Freq PRN Reason Stop Dose Admin Albuterol 2.5 mg 01/21/25 08:21 Albuterol Sulfate Neb 2.5 Mg/3 Ml Inh INHALATION Q4HRT PRN Shortness Of Breath Albuterol/Ipratropium 3 ml 01/21/25 08:00 01/23/25 02:44 Ipratropium 0.5 Mg/Albuterol Sulfate 2.5 Mg Ampul.Neb 3 Ml INHALATION 3 ml Q6HRT BONNY Administration Azithromycin 500 mg 01/21/25 09:00 01/22/25 09:49 Azithromycin 500 Mg Tablet PO 500 mg DAILY BONNY Administration Fondaparinux 10 mg 01/22/25 21:00 01/22/25 20:59 Fondaparinux Sodium 5 Mg/0.4 Ml Syringe SUB-Q 10 mg HS BONNY Administration Lorazepam 0.5 mg 01/21/25 13:07 Lorazepam Inj (*Crx) 2 Mg/Ml Vial IV PUSH Q6H PRN Anxiety Losartan Potassium 25 mg 01/21/25 09:00 01/22/25 09:50 Losartan Potassium 25 Mg Tablet PO 25 mg DAILY BONNY Administration Pantoprazole Sodium 40 mg 01/23/25 07:00 01/23/25 06:04 Pantoprazole 40 Mg Tablet PO 40 mg QAM BONNY Administration Perflutren Lipid Microsphere 0 ml 01/21/25 17:55 Perflutren Lipid Microspheres 1.5 Ml Vial Diluted To 10 Ml Total Volume IV PUSH 01/24/25 17:55 ONCE PRN adequate visualization Protocol Prednisone 40 mg 01/23/25 08:00 Prednisone 20 Mg Tablet PO 01/27/25 07:59 DAILY@0800 [facility] Radiology Results: ITS Impressions Chest X-Ray 01/20/25 20:26 IMPRESSION: No acute cardiopulmonary process. Chest CTA 01/21/25 16:21 IMPRESSION: 1. Pulmonary embolism with right ventricular strain. 2. Groundglass appearance is seen in both lower lobes and both upper lobes which may indicate atelectasis versus pneumonia versus pulmonary edema. Clinical correlation and follow-up advised. I called the hospitalist office multiple times with no success and left a message on the voicemail. ADDENDUM: 01/21/25 345 the hospitalist on-call was notified with the result of the patient at 5:55 PM on January 21, 2025. Venous Doppler Study 01/22/25 18:55 IMPRESSION: Thrombosis in the left peroneal and posterior tibial veins. No right deep vein thrombosis. Head CT 01/22/25 23:57 IMPRESSION: No acute intracranial findings. Labs Labs: Laboratory Results - last 24 hr 01/22/25 01/22/25 01/22/25 08:36 14:59 17:33 WBC 19.2 H RBC 4.17 L Hgb 13.3 Hct 40.8 MCV 97.8 MCH 31.9 MCHC 32.6 RDW 12.3 Plt Count 296 MPV 10.0 Immature Gran % (Auto) 0.6 H Neut % (Auto) 69.1 Lymph % (Auto) 22.4 [place] % (Auto) 6.9 Eos % (Auto) 0.7 Baso % (Auto) 0.3 Lymph # (Auto) 4.31 H [place] # (Auto) 1.3 H Eos # (Auto) 0.1 Baso # (Auto) 0.1 Abs Immat Gran (auto) 0.12 H Absolute Neuts (auto) 13.3 H Absolute Nucleated RBC 0.000 Nucleated RBC % 0.0 APTT 89.6 H 68.6 H Sodium 136 L Potassium Chloride Carbon Dioxide Anion Gap BUN Creatinine Estim Creat Clear Calc Estimated GFR Glucose Calcium Phosphorus Magnesium Troponin I NT-Pro-B Natriuret Pep 01/22/25 01/22/25 01/22/25 17:33 17:33 17:33 WBC RBC Hgb Hct MCV MCH MCHC RDW Plt Count MPV Immature Gran % (Auto) Neut % (Auto) Lymph % (Auto) [place] % (Auto) Eos % (Auto) Baso % (Auto) Lymph # (Auto) [place] # (Auto) Eos # (Auto) Baso # (Auto) Abs Immat Gran (auto) Absolute Neuts (auto) Absolute Nucleated RBC Nucleated RBC % APTT Sodium Cancelled Potassium 4.0 Cancelled Chloride 103 Cancelled Carbon Dioxide 27 Anion Gap BUN Creatinine Estim Creat Clear Calc Estimated GFR Glucose Calcium Phosphorus Magnesium Troponin I NT-Pro-B Natriuret Pep 01/22/25 01/22/25 01/22/25 17:33 17:33 17:33 WBC RBC Hgb Hct MCV MCH MCHC RDW Plt Count MPV Immature Gran % (Auto) Neut % (Auto) Lymph % (Auto) [place] % (Auto) Eos % (Auto) Baso % (Auto) Lymph # (Auto) [place] # (Auto) Eos # (Auto) Baso # (Auto) Abs Immat Gran (auto) Absolute Neuts (auto) Absolute Nucleated RBC Nucleated RBC % APTT Sodium Potassium Chloride Carbon Dioxide Cancelled Anion Gap 6 Cancelled BUN 19 H D Cancelled Creatinine 0.62 L Estim Creat Clear Calc Estimated GFR Glucose Calcium Phosphorus Magnesium Troponin I NT-Pro-B Natriuret Pep 01/22/25 01/22/25 01/22/25 17:33 17:33 17:33 WBC RBC Hgb Hct MCV MCH MCHC RDW Plt Count MPV Immature Gran % (Auto) Neut % (Auto) Lymph % (Auto) [place] % (Auto) Eos % (Auto) Baso % (Auto) Lymph # (Auto) [place] # (Auto) Eos # (Auto) Baso # (Auto) Abs Immat Gran (auto) Absolute Neuts (auto) Absolute Nucleated RBC Nucleated RBC % APTT Sodium Potassium Chloride Carbon Dioxide Anion Gap BUN Creatinine Cancelled Estim Creat Clear Calc 118 Cancelled Estimated GFR > 60 Cancelled Glucose 130 H Calcium Phosphorus Magnesium Troponin I NT-Pro-B Natriuret Pep 01/22/25 01/22/25 01/23/25 17:33 17:33 05:39 WBC 12.2 H RBC 4.46 Hgb 14.2 Hct 44.3 MCV 99.3 MCH 31.8 MCHC 32.1 RDW 12.3 Plt Count 294 MPV 9.7 Immature Gran % (Auto) 0.5 Neut % (Auto) 54.7 Lymph % (Auto) 32.0 [place] % (Auto) 8.8 H Eos % (Auto) 3.5 Baso % (Auto) 0.5 Lymph # (Auto) 3.91 H [place] # (Auto) 1.1 H Eos # (Auto) 0.4 H Baso # (Auto) 0.1 Abs Immat Gran (auto) 0.06 H Absolute Neuts (auto) 6.7 Absolute Nucleated RBC 0.000 Nucleated RBC % 0.0 APTT Sodium 137 Potassium 4.2 Chloride 101 Carbon Dioxide 28 Anion Gap 8 BUN 19 H Creatinine 0.68 L Estim Creat Clear Calc 109 Estimated GFR > 60 Glucose Cancelled 102 Calcium 8.5 Cancelled 8.8 Phosphorus 3.9 Magnesium 2.0 Troponin I < 0.012 NT-Pro-B Natriuret Pep 1560 H
[2025-01-23 07:39] LABS: Troponin I 0.014 ng/mL (0.000-0.034)
--- NOTE | 2025-01-23 09:00 | P.PNIM_ITS ---
Progress Note: A&P Assessment and Plan (1) COPD with acute exacerbation: Code(s): J44.1 - Chronic obstructive pulmonary disease with (acute) exacerbation Status: Acute Assessment and Plan: Wheezing in the ED, now resolved * Monitor vital signs, I&Os, neuro status and patient is a fall risk * Monitor serum electrolytes, cultures and CBC * Monitor Oxygen saturation, Oxygen via NC; wean oxygen as tolerated, keep SpO2 greater than 88% * Send sputum cultures if possible * Azithromycin 500mg x3 completed * Duonebz q6H and Albuterol q2H prn * Solu-Medrol 40 mg IVq12H, changed to prednisone 40 daily x4 more days (2) Acute dyspnea: Code(s): R06.00 - Dyspnea, unspecified Status: Acute Assessment and Plan: Symptoms: SOB, tachypnea, tachycardia. SpO2: 98 on RA. Tachycardic on exam 100- 120 7.366/pCO2 39.3/pO2 70/ABG HCO3 22/O2 93.6 * EKG: Tachycardia * D dimer: elevated at 3.19 * Chest XR: No cardiopulmonary process * CTA showed a PE with right ventricular strain * Trending troponin. NTproBNP elevated, 1560 * Started on lovenox, then started heparin drip. Developed flushing so stopped anticoagulation and starting Arixtra at 9pm after discussed dose and timing with pharmacy. * See above for treatment/management (3) Acute hypokalemia: Code(s): E87.6 - Hypokalemia Status: Acute Assessment and Plan: * In ED: K 3.3, repeat 4 * Will supplement as needed * Monitor daily labs (4) Anxiety: Code(s): F41.9 - Anxiety disorder, unspecified Status: Acute Assessment and Plan: * Not on at home medications * Lorazepam 0.5mg PRN q6hr for generalized anxiety * May be component of Tachypnea/Tachycardia (5) Elevated white blood cell count: Code(s): D72.829 - Elevated white blood cell count, unspecified Status: Acute Assessment and Plan: WBC 24.3 up from 9 on 01/20. Has been on solumedrol, trending down (6) Facial flushing: Code(s): R23.2 - Flushing Status: Acute Assessment and Plan: Flushing to face and chest this morning. Concern for possible mild reaction to heparin is on the differential so changed to Arixtra. Flushing improving off heparin. Platelet count stable --Arixtra 10mg hs --No itching with flushing. Resolved when heparin discontinued (7) Acute pulmonary embolism: Code(s): I26.99 - Other pulmonary embolism without acute cor pulmonale Status: Acute Assessment and Plan: Spoke with the radiologist who read the CT and he reported that she had multiple segmental and subsegmental PE's 01/21 CTA 1. Pulmonary embolism with right ventricular strain. 2. Groundglass appearance is seen in both lower lobes and both upper lobes which may indicate atelectasis versus pneumonia versus pulmonary edema. Clinical correlation and follow-up advised. --Consult cardiology for recommendations given right heart strain --Not requiring oxygen and blood pressure normal. HR still elevated, but has been stable, 100-120's --Transfer to [facility] per cardiology recommendations --Follow troponin in AM, <0.012, <0.012, 0.014 --Follow electrolytes Plan Code status: Full code per patient DVT prophylaxis: Changing to arixtra Stress ulcer prophylaxis: Start PPI PT/OT notes: PT/OT evaluation Time Spent With Patient Time: 59 minutes Subjective Date/time seen: 01/23/25 09:00 Interval history: Flushing almost resolved White count improving 24.3> 12.2 Still tachycardic, 115. Troponin <0.012, <0.012, 0.014 TTE result suggestive of right heart strain. Spoke to cardiology and recommend transfer Transferring to [facility] Review of Systems Review of Systems: Reason for encounter: PE, right heart strain noted on CT chest Exam Narrative: Gen - well appearing female in no acute respiratory distress who is nontoxic- appearing lying semi recumbent in bed HEENT - normocephalic. Atraumatic. Pupils equal round and reactive. Extraocular motions intact. Sclera clear and anicteric. Nares patent. Oropharynx was clear. No oral lesions. Moist mucous membranes. Tongue was midline. Neck - neck was supple. No dominant adenopathy, thyromegaly or masses. 2+ carotid upstrokes without bruits. Chest - No wheezes No crackles. Slightly increased work of breathing CV - Tachycardic S1-S2. No murmurs gallops or rubs. Abd - abdomen was soft. Nontender. Nondistended. Positive bowel sounds. No organomegaly or masses. Ext - no clubbing, cyanosis LLE edema. 2+ DP pulses bilaterally. Neuro - patient is alert and oriented x4. Strength is 5/5 in both upper and lower extremities. Cranial nerves 2-12 are intact. Speech is clear. Psych - normal mood and affect. Patient is pleasant and cooperative. Skin - warm and dry. Flushing to face and chest noted almost resolved Objective Data Vital Signs Vital Signs: Vital Signs - 24 hr 01/22/25 09:19 01/22/25 12:00 01/22/25 13:41 Temperature Pulse Rate 114 H 100 Respiratory Rate 22 H Blood Pressure Pulse Oximetry Oxygen Delivery Room Air 01/22/25 13:51 01/22/25 13:53 01/22/25 20:00 Temperature 96.6 F L 96.6 F L Pulse Rate 107 H 121 H 105 H Respiratory Rate 24 H 18 24 H Blood Pressure 137/85 146/91 H Pulse Oximetry 96 93 Oxygen Delivery 01/22/25 20:00 01/22/25 20:46 01/22/25 22:35 Temperature 97.6 F Pulse Rate 109 H 115 H Respiratory Rate 14 Blood Pressure 136/85 Pulse Oximetry 98 Oxygen Delivery Room Air 01/23/25 00:00 01/23/25 00:55 01/23/25 02:44 Temperature 97.2 F L Pulse Rate 101 H 107 H 115 H Respiratory Rate 24 H 18 Blood Pressure 141/91 H Pulse Oximetry 92 Oxygen Delivery 01/23/25 04:00 01/23/25 04:00 01/23/25 08:34 Temperature 97.1 F L Pulse Rate 115 H 102 H 114 H Respiratory Rate 20 20 Blood Pressure 127/65 Pulse Oximetry 91 Oxygen Delivery 01/23/25 08:36 01/23/25 08:43 Temperature Pulse Rate 115 H Respiratory Rate 20 Blood Pressure Pulse Oximetry 91 Oxygen Delivery Room Air Intake/Output Intake/Output: Intake & Output 01/20/25 01/21/25 01/22/25 01/23/25 23:59 23:59 23:59 23:59 Intake Total 2559 719 0012.0 300 Balance 8942 085 9834.0 300 Meds/Results Medications: Active Medications Generic Name Dose Route Start Last Admin Trade Name Freq PRN Reason Stop Dose Admin Albuterol 2.5 mg 01/21/25 08:21 Albuterol Sulfate Neb 2.5 Mg/3 Ml Inh INHALATION Q4HRT PRN Shortness Of Breath Albuterol/Ipratropium 3 ml 01/21/25 08:00 01/23/25 08:34 Ipratropium 0.5 Mg/Albuterol Sulfate 2.5 Mg Ampul.Neb 3 Ml INHALATION 3 ml Q6HRT BONNY Administration Azithromycin 500 mg 01/21/25 09:00 01/22/25 09:49 Azithromycin 500 Mg Tablet PO 500 mg DAILY BONNY Administration Fondaparinux 10 mg 01/22/25 21:00 01/22/25 20:59 Fondaparinux Sodium 5 Mg/0.4 Ml Syringe SUB-Q 10 mg HS BONNY Administration Lorazepam 0.5 mg 01/21/25 13:07 Lorazepam Inj (*Crx) 2 Mg/Ml Vial IV PUSH Q6H PRN Anxiety Losartan Potassium 25 mg 01/21/25 09:00 01/22/25 09:50 Losartan Potassium 25 Mg Tablet PO 25 mg DAILY BONNY Administration Pantoprazole Sodium 40 mg 01/23/25 07:00 01/23/25 06:04 Pantoprazole 40 Mg Tablet PO 40 mg QAM BONNY Administration Perflutren Lipid Microsphere 0 ml 01/21/25 17:55 Perflutren Lipid Microspheres 1.5 Ml Vial Diluted To 10 Ml Total Volume IV PUSH 01/24/25 17:55 ONCE PRN adequate visualization Protocol Prednisone 40 mg 01/23/25 08:00 Prednisone 20 Mg Tablet PO 01/27/25 07:59 DAILY@0800 [facility] Radiology Results: ITS Impressions Chest X-Ray 01/20/25 20:26 IMPRESSION: No acute cardiopulmonary process. Chest CTA 01/21/25 16:21 IMPRESSION: 1. Pulmonary embolism with right ventricular strain. 2. Groundglass appearance is seen in both lower lobes and both upper lobes which may indicate atelectasis versus pneumonia versus pulmonary edema. Clinical correlation and follow-up advised. I called the hospitalist office multiple times with no success and left a mess age on the voicemail. ADDENDUM: 01/21/[id number] the hospitalist on-call was notified with the result of the patient at 5:55 PM on January 21, 2025. Venous Doppler Study 01/22/25 18:55 IMPRESSION: Thrombosis in the left peroneal and posterior tibial veins. No right deep vein thrombosis. Head CT 01/22/25 23:57 IMPRESSION: No acute intracranial findings. Labs Labs: Laboratory Results - last 24 hr 01/22/25 01/22/25 01/22/25 14:59 17:33 17:33 WBC 19.2 H RBC 4.17 L Hgb 13.3 Hct 40.8 MCV 97.8 MCH 31.9 MCHC 32.6 RDW 12.3 Plt Count 296 MPV 10.0 Immature Gran % (Auto) 0.6 H Neut % (Auto) 69.1 Lymph % (Auto) 22.4 [place] % (Auto) 6.9 Eos % (Auto) 0.7 Baso % (Auto) 0.3 Lymph # (Auto) 4.[address] [place] # (Auto) 1.3 H Eos # (Auto) 0.1 Baso # (Auto) 0.1 Abs Immat Gran (auto) 0.12 H Absolute Neuts (auto) 13.3 H Absolute Nucleated RBC 0.000 Nucleated RBC % 0.0 APTT 68.6 H Sodium 136 L Cancelled Potassium 4.0 Chloride Carbon Dioxide Anion Gap BUN Creatinine Estim Creat Clear Calc Estimated GFR Glucose Calcium Phosphorus Magnesium Troponin I NT-Pro-B Natriuret Pep 01/22/25 01/22/25 01/22/25 17:33 17:33 17:33 WBC RBC Hgb Hct MCV MCH MCHC RDW Plt Count MPV Immature Gran % (Auto) Neut % (Auto) Lymph % (Auto) [place] % (Auto) Eos % (Auto) Baso % (Auto) Lymph # (Auto) [place] # (Auto) Eos # (Auto) Baso # (Auto) Abs Immat Gran (auto) Absolute Neuts (auto) Absolute Nucleated RBC Nucleated RBC % APTT Sodium Potassium Cancelled Chloride 103 Cancelled Carbon Dioxide 27 Cancelled Anion Gap 6 BUN Creatinine Estim Creat Clear Calc Estimated GFR Glucose Calcium Phosphorus Magnesium Troponin I NT-Pro-B Natriuret Pep 01/22/25 01/22/25 01/22/25 17:33 17:33 17:33 WBC RBC Hgb Hct MCV MCH MCHC RDW Plt Count MPV Immature Gran % (Auto) Neut % (Auto) Lymph % (Auto) [place] % (Auto) Eos % (Auto) Baso % (Auto) Lymph # (Auto) [place] # (Auto) Eos # (Auto) Baso # (Auto) Abs Immat Gran (auto) Absolute Neuts (auto) Absolute Nucleated RBC Nucleated RBC % APTT Sodium Potassium Chloride Carbon Dioxide Anion Gap Cancelled BUN 19 H D Cancelled Creatinine 0.62 L Cancelled Estim Creat Clear Calc 118 Estimated GFR Glucose Calcium Phosphorus Magnesium Troponin I NT-Pro-B Natriuret Pep 01/22/25 01/22/25 01/22/25 17:33 17:33 17:33 WBC RBC Hgb Hct MCV MCH MCHC RDW Plt Count MPV Immature Gran % (Auto) Neut % (Auto) Lymph % (Auto) [place] % (Auto) Eos % (Auto) Baso % (Auto) Lymph # (Auto) [place] # (Auto) Eos # (Auto) Baso # (Auto) Abs Immat Gran (auto) Absolute Neuts (auto) Absolute Nucleated RBC Nucleated RBC % APTT Sodium Potassium Chloride Carbon Dioxide Anion Gap BUN Creatinine Estim Creat Clear Calc Cancelled Estimated GFR > 60 Cancelled Glucose 130 H Cancelled Calcium 8.5 Phosphorus Magnesium Troponin I NT-Pro-B Natriuret Pep 01/22/25 01/23/25 01/23/25 17:33 05:39 05:40 WBC 12.2 H RBC 4.46 Hgb 14.2 Hct 44.3 MCV 99.3 MCH 31.8 MCHC 32.1 RDW 12.3 Plt Count 294 MPV 9.7 Immature Gran % (Auto) 0.5 Neut % (Auto) 54.7 Lymph % (Auto) 32.0 [place] % (Auto) 8.8 H Eos % (Auto) 3.5 Baso % (Auto) 0.5 Lymph # (Auto) 3.[address] [place] # (Auto) 1.1 H Eos # (Auto) 0.4 H Baso # (Auto) 0.1 Abs Immat Gran (auto) 0.06 H Absolute Neuts (auto) 6.7 Absolute Nucleated RBC 0.000 Nucleated RBC % 0.0 APTT Sodium 137 Potassium 4.2 Chloride 101 Carbon Dioxide 28 Anion Gap 8 BUN 19 H Creatinine 0.68 L Estim Creat Clear Calc 109 Estimated GFR > 60 Glucose 102 Calcium Cancelled 8.8 Phosphorus 3.9 Magnesium 2.0 Troponin I < 0.012 0.014 NT-Pro-B Natriuret Pep 1560 H Quality VTE Prophylaxis VTE prophylaxis: pharmacologic ordered Hospitalist MIPS Advance Care Plan I have confirmed that the patient's Advanced Care Plan is present, code status is documented, or surrogate decision maker is listed in patient medical record.: Yes Medication Reconciliation I have utilized all available resources to obtain, update and review the patients current medications (includes all prescriptions, OTC, herbals, cannabis, and nutritional supplements).: Yes
[2025-01-23] MEDS: LOSARTAN POTASSIUM 25 MG TABLET PO (09:38)
[2025-01-23] MEDS: AZITHROMYCIN 500 MG TABLET PO (09:38)
[2025-01-23] MEDS: LORazepam INJ (*CRX) 2 MG/ML VIAL 0.5 MG IV PUSH ×2 (14:53→22:35)
--- NOTE | 2025-01-23 16:05 | PC.NURSE ---
Patient's cousin told RN that patient has a history of amphetamines. RN asked patient how long. Patient stated I have done them for a couple of years. Patient's cousin took a phone call and left the room. Patient then looked at RN and stated Actually the last time was last week. Patient also asked RN not to tell her cousin Luis.
[2025-01-24] VITALS (14 sets, daily range): BP systolic 117–138; BP diastolic 61–91; PULSE 90–106; RESP 16–20; TEMP 35.9–36.8; O2SAT 93–96
[2025-01-24] MEDS: IPRATROPIUM 0.5 MG/ALBUTEROL SULFATE 2.5 MG AMPUL.NEB 3 ML INHALATION ×2 (01:57→14:33)
--- NOTE | 2025-01-24 06:22 | PM.PNCARD ---
Progress Note: A&P Assessment and Plan (1) Acute pulmonary embolism: Code(s): I26.99 - Other pulmonary embolism without acute cor pulmonale Status: Acute (2) DVT (deep venous thrombosis): Code(s): I82.409 - Acute embolism and thrombosis of unspecified deep veins of unspecified lower extremity Status: Acute Plan -Segmental and subsegmental Pulmonary embolism-source is DVT *Intermediate high risk PE (segmental and subsegmental): no hemodynamic instability sPESI>1 (COPD, tachycardia>110) Troponin negative but elevated NT proBNP indicating RV strain TTE shows dilated RV with reduced systolic function with Loera sign suggestive of RV strain -DVT- thrombosis in the left peroneal and posterior tibial veins -Family history of DVTs -Elevated NT proBNP with negative troponin -Allergy to heparin- flushing of face and neck Plan: -She is less tachycardic today. Blood pressure is stable. Continue anticoagulation with fondaparinux -Transfer to [facility] was initiated yesterday for thrombolysis/thrombectomy evaluation; awaiting bed -Heme oncology consult to evaluate given family history of blood clots and unprovoked DVT -Check and replace electrolytes to keep potassium greater than 4 and magnesium greater than 2 -Oxygen as needed to keep sats greater than 90% Subjective Date/time seen: 01/24/25 06:22 Interval history: Reason for encounter: PE, right heart strain Interval history: Chief laying in bed. No significant shortness of breath. No chest pain, dizziness, palpitations. She is on room air. Telemetry shows sinus tachycardia with heart rate in the 90s to 100s. Review of Systems Cardiovascular: Comments: As per HPI Respiratory: Comments: As per HPI Exam Narrative: General: Alert oriented x3, no acute distress Neck: Supple, flushing on face resolved and flushing of chest decreasing Chest: Bilaterally clear to auscultation, no rales or rhonchi Cardiac: S1, S2 +, regular rate, regular rhythm, no murmurs or rubs Extremities: Bilateral lower extremity edema 1+, no skin rash Neurologic: Alert and oriented x3, no focal neurological deficits Objective Data Vital Signs Vital Signs: Vital Signs - 24 hr 01/23/25 08:00 01/23/25 08:34 01/23/25 08:36 Temperature Pulse Rate 117 H 114 H Respiratory Rate 20 Blood Pressure Pulse Oximetry 91 Oxygen Delivery Room Air 01/23/25 08:43 01/23/25 09:38 01/23/25 12:00 Temperature Pulse Rate 115 H 102 H Respiratory Rate 20 Blood Pressure Pulse Oximetry Oxygen Delivery Room Air 01/23/25 14:18 01/23/25 14:25 01/23/25 16:00 Temperature 37.5 C Pulse Rate 103 H 104 H 110 H Respiratory Rate 18 18 18 Blood Pressure 160/94 H Pulse Oximetry 95 Oxygen Delivery 01/23/25 16:00 01/23/25 19:59 01/23/25 19:59 Temperature Pulse Rate 76 102 H Respiratory Rate 20 Blood Pressure Pulse Oximetry 93 Oxygen Delivery Room Air 01/23/25 20:00 01/23/25 20:00 01/23/25 20:05 Temperature 36.7 C Pulse Rate 95 108 H Respiratory Rate 18 20 Blood Pressure 138/76 Pulse Oximetry 95 Oxygen Delivery Room Air 01/23/25 20:10 01/24/25 00:00 01/24/25 00:10 Temperature 36.1 C L Pulse Rate 99 102 H 100 Respiratory Rate 20 Blood Pressure 132/75 Pulse Oximetry 96 Oxygen Delivery 01/24/25 01:57 01/24/25 04:20 Temperature Pulse Rate 95 98 Respiratory Rate 16 Blood Pressure Pulse Oximetry Oxygen Delivery Intake/Output Intake/Output: Intake & Output 01/21/25 01/22/25 01/23/25 01/24/25 23:59 23:59 23:59 23:59 Intake Total 680 1410.0 1224 Balance 680 1410.0 1224 Meds/Results Medications: Active Medications Generic Name Dose Route Start Last Admin Trade Name Freq PRN Reason Stop Dose Admin Albuterol 2.5 mg 01/21/25 08:21 Albuterol Sulfate Neb 2.5 Mg/3 Ml Inh INHALATION Q4HRT PRN Shortness Of Breath Albuterol/Ipratropium 3 ml 01/21/25 08:00 01/24/25 01:57 Ipratropium 0.5 Mg/Albuterol Sulfate 2.5 Mg Ampul.Neb 3 Ml INHALATION 3 ml Q6HRT BONNY Administration Fondaparinux 10 mg 01/22/25 21:00 01/22/25 20:59 Fondaparinux Sodium 5 Mg/0.4 Ml Syringe SUB-Q 10 mg HS BONNY Administration Lorazepam 0.5 mg 01/21/25 13:07 01/23/25 22:35 Lorazepam Inj (*Crx) 2 Mg/Ml Vial IV PUSH 0.5 mg Q6H PRN Administration Anxiety Losartan Potassium 25 mg 01/21/25 09:00 01/23/25 09:38 Losartan Potassium 25 Mg Tablet PO 25 mg DAILY BONNY Administration Pantoprazole Sodium 40 mg 01/23/25 07:00 01/23/25 09:38 Pantoprazole 40 Mg Tablet PO 40 mg QAM BONNY Administration Perflutren Lipid Microsphere 0 ml 01/21/25 17:55 Perflutren Lipid Microspheres 1.5 Ml Vial Diluted To 10 Ml Total Volume IV PUSH 01/24/25 17:55 ONCE PRN adequate visualization Protocol Prednisone 40 mg 01/23/25 08:00 01/23/25 09:38 Prednisone 20 Mg Tablet PO 01/27/25 07:59 40 mg DAILY@0800 BONNY Administration Radiology Results: ITS Impressions Chest X-Ray 01/20/25 20:26 IMPRESSION: No acute cardiopulmonary process. Chest CTA 01/21/25 16:21 IMPRESSION: 1. Pulmonary embolism with right ventricular strain. 2. Groundglass appearance is seen in both lower lobes and both upper lobes which may indicate atelectasis versus pneumonia versus pulmonary edema. Clinical correlation and follow-up advised. I called the hospitalist office multiple times with no success and left a message on the voicemail. ADDENDUM: 01/21/25 [id number] the hospitalist on-call was notified with the result of the patient at 5:55 PM on January 21, 2025. Venous Doppler Study 01/22/25 18:55 IMPRESSION: Thrombosis in the left peroneal and posterior tibial veins. No right deep vein thrombosis. Head CT 01/22/25 23:57 IMPRESSION: No acute intracranial findings. Labs Labs: Laboratory Results - last 24 hr 01/23/25 05:40 Troponin I 0.014
[2025-01-24 06:23] LABS: Hematocrit 46.6 % (37.0-47.0); Hemoglobin 14.8 g/dL (12.0-15.0); Immature Granulocyte Percent A 0.7 % (0-0.5); Lymphocytes Absolute Auto 3.72 K/mm3 (0.9-3.2); Mean Corpuscular HGB Conc 31.8 g/dl (32-36); Mean Corpuscular Hemoglobin 31.8 pg (26-34); Mean Corpuscular Volume 100.0 fl (80-100); Nucleated Red Blood Cells Absolute Auto 0.000 K/mm3 (0.0-0.012); Nucleated Red Blood Cells Perc 0.0 % (0.0-0.2); Platelet Count Result 319 k/mm3 (150-375); Red Blood Count 4.66 M/mm3 (4.2-5.4); White Blood Count 13.7 K/mm3 (4.5-10.0)
[2025-01-24 06:41] LABS: Anion Gap 7 mmol/L (4-12); Blood Urea Nitrogen 20 mg/dL (7-17); Calcium 8.8 mg/dL (8.4-10.2); Carbon Dioxide 25 mmol/L (22-30); Chloride 101 mmol/L (98-107); Estimated CRCL calculation 112 ml/min; Estimated Glomerular Filt Rate > 60; Glucose 103 mg/dL (65-110); Potassium 4.0 mmol/L (3.4-5.0); Sodium 133 mmol/L (137-145)
--- NOTE | 2025-01-24 07:54 | P.PNIM_ITS ---
Progress Note: A&P Assessment and Plan (1) COPD with acute exacerbation: Code(s): J44.1 - Chronic obstructive pulmonary disease with (acute) exacerbation Status: Acute Assessment and Plan: Wheezing in the ED, now resolved * Monitor vital signs, I&Os, neuro status and patient is a fall risk * Monitor serum electrolytes, cultures and CBC * Monitor Oxygen saturation, Oxygen via NC; wean oxygen as tolerated, keep SpO2 greater than 88% * Send sputum cultures if possible * Azithromycin 500mg x3 completed * Duonebs q6H and Albuterol q2H prn * Solu-Medrol 40 mg IVq12H, changed to prednisone 40 daily x4 more days (2) Acute dyspnea: Code(s): R06.00 - Dyspnea, unspecified Status: Acute Assessment and Plan: Symptoms: SOB, tachypnea, tachycardia. SpO2: 98 on RA. Tachycardic on exam 100- 120, HR improving 90's last night<100's during the day today 7.366/pCO2 39.3/pO2 70/ABG HCO3 22/O2 93.6. D dimer: elevated at 3.19. Trended troponin. NTproBNP elevated, 1560 EKG: Tachycardia 01/20 Chest XR: No cardiopulmonary process 01/21 CTA showed a PE with right ventricular strain Started on lovenox, then switched to heparin drip. Developed flushing so stopped heparin drip and flushing resolved. Likely a mild hypersensitivity since no itching and could potentially retry at a lower dose if needed Arixtra at 9pm 01/24 after discussed dose and timing with pharmacy. Patient reported feeling dizzy/presyncopal and worried it was a side effect of Arixtra so it was held overnight. Discussed that symptoms were likely a symptom of the PE an reaction to the extra, but did not wish to retry it this morning initially symptoms started apixaban. Patient later said she would be willing to retry it if needed. Do not consider this an adverse reaction to Arixtra --Planning transfer to [facility]. If continues to improve will consider repeating limited echo to reevaluate right heart strain (3) Acute hypokalemia: Code(s): E87.6 - Hypokalemia Status: Acute Assessment and Plan: * In ED: K 3.3, repeat 4 * Will supplement as needed * Monitor daily labs (4) Anxiety: Code(s): F41.9 - Anxiety disorder, unspecified Status: Acute Assessment and Plan: * Not on at home medications * Hydroxyzine TID prn or lorazepam 0.5 hs prn x2 days for generalized anxiety * May be component of Tachypnea/Tachycardia (5) Elevated white blood cell count: Code(s): D72.829 - Elevated white blood cell count, unspecified Status: Acute Assessment and Plan: WBC 24.3 up from 9 on 01/20. Overall improving 19.2>12.2<13.7 Has been on solumedrol, now on Prednisone (6) Facial flushing: Code(s): R23.2 - Flushing Status: Acute Assessment and Plan: Flushing to face and chest this morning. Concern for possible mild reaction to heparin is on the differential so changed to Arixtra. Flushing improving off heparin, now resolved. Platelet count stable --Arixtra 10mg hs changed to Apixaban 10mg BID (7) Acute pulmonary embolism: Code(s): I26.99 - Other pulmonary embolism without acute cor pulmonale Status: Acute Assessment and Plan: Spoke with the radiologist who read the CT and he reported that she had multiple segmental and subsegmental PE's 01/21 CTA 1. Pulmonary embolism with right ventricular strain. 2. Groundglass appearance is seen in both lower lobes and both upper lobes which may indicate atelectasis versus pneumonia versus pulmonary edema. Clinical correlation and follow-up advised. --Consulted cardiology for recommendations given right heart strain --Not requiring oxygen and blood pressure normal. HR still elevated, but has been stable, 100-120's --Transfer to [facility] per cardiology recommendations --Follow troponin in AM, <0.012, <0.012, 0.014 --Follow electrolytes Plan Code status: Full code per patient DVT prophylaxis: Changing to arixtra Stress ulcer prophylaxis: Start PPI PT/OT notes: PT/OT evaluation Time Spent With Patient Time: 58 minutes Subjective Date/time seen: 01/24/25 08:05 Interval history: Reason for encounter: PE, right heart strain Interval history: Lying in bed. No significant shortness of breath. No chest pain, dizziness, palpitations. She is on room air. Telemetry shows sinus tachycardia with heart rate in the 90s to 100s. Patient reported Had dizziness yesterday. Worried it was a side effect of Arixtra but discussed with her it could be a complication of a PE with right heart strain. Did not initially wish to retry so changed to apixaban, though could resume. Review of Systems Review of Systems: Reason for encounter: PE, right heart strain noted on CT chest Exam Narrative: Gen - well appearing female in no acute respiratory distress who is nontoxic- appearing lying semi recumbent in bed HEENT - normocephalic. Atraumatic. Pupils equal round and reactive. Extraocular motions intact. Sclera clear and anicteric. Nares patent. Oropharynx was clear. No oral lesions. Moist mucous membranes. Tongue was midline. Neck - neck was supple. No dominant adenopathy, thyromegaly or masses. 2+ carotid upstrokes without bruits. Chest - No wheezes No crackles. Slightly increased work of breathing CV - Tachycardic S1-S2. No murmurs gallops or rubs. Abd - abdomen was soft. Nontender. Nondistended. Positive bowel sounds. No organomegaly or masses. Ext - no clubbing, cyanosis LLE edema. 2+ DP pulses bilaterally. Neuro - patient is alert and oriented x4. Strength is 5/5 in both upper and lower extremities. Cranial nerves 2-12 are intact. Speech is clear. Psych - normal mood and affect. Patient is pleasant and cooperative. Skin - warm and dry. Flushing to face and chest resolved Objective Data Vital Signs Vital Signs: Vital Signs - 24 hr 01/23/25 08:00 01/23/25 08:34 01/23/25 08:36 Temperature Pulse Rate 117 H 114 H Respiratory Rate 20 Blood Pressure Pulse Oximetry 91 Oxygen Delivery Room Air 01/23/25 08:43 01/23/25 09:38 01/23/25 12:00 Temperature Pulse Rate 115 H 102 H Respiratory Rate 20 Blood Pressure Pulse Oximetry Oxygen Delivery Room Air 01/23/25 14:18 01/23/25 14:25 01/23/25 16:00 Temperature 99.5 F Pulse Rate 103 H 104 H 110 H Respiratory Rate 18 18 18 Blood Pressure 160/94 H Pulse Oximetry 95 Oxygen Delivery 01/23/25 16:00 01/23/25 19:59 01/23/25 19:59 Temperature Pulse Rate 76 102 H Respiratory Rate 20 Blood Pressure Pulse Oximetry 93 Oxygen Delivery Room Air 01/23/25 20:00 01/23/25 20:00 01/23/25 20:05 Temperature 98.0 F Pulse Rate 95 108 H Respiratory Rate 18 20 Blood Pressure 138/76 Pulse Oximetry 95 Oxygen Delivery Room Air 01/23/25 20:10 01/24/25 00:00 01/24/25 00:10 Temperature 97.0 F L Pulse Rate 99 102 H 100 Respiratory Rate 20 Blood Pressure 132/75 Pulse Oximetry 96 Oxygen Delivery 01/24/25 01:57 01/24/25 04:00 01/24/25 04:20 Temperature 98.2 F Pulse Rate 95 91 98 Respiratory Rate 16 16 Blood Pressure 138/82 Pulse Oximetry 94 Oxygen Delivery 01/24/25 07:46 Temperature 96.6 F L Pulse Rate 98 Respiratory Rate 20 Blood Pressure 133/91 H Pulse Oximetry 93 Oxygen Delivery Intake/Output Intake/Output: Intake & Output 01/21/25 01/22/25 01/23/25 01/24/25 23:59 23:59 23:59 23:59 Intake Total 680 1410.0 1224 400 Balance 680 1410.0 1224 400 Meds/Results Medications: Active Medications Generic Name Dose Route Start Last Admin Trade Name Freq PRN Reason Stop Dose Admin Albuterol 2.5 mg 01/21/25 08:21 Albuterol Sulfate Neb 2.5 Mg/3 Ml Inh INHALATION Q4HRT PRN Shortness Of Breath Albuterol/Ipratropium 3 ml 01/21/25 08:00 01/24/25 01:57 Ipratropium 0.5 Mg/Albuterol Sulfate 2.5 Mg Ampul.Neb 3 Ml INHALATION 3 ml Q6HRT BONNY Administration Fondaparinux 10 mg 01/22/25 21:00 01/22/25 20:59 Fondaparinux Sodium 5 Mg/0.4 Ml Syringe SUB-Q 10 mg HS BONNY Administration Lorazepam 0.5 mg 01/21/25 13:07 01/23/25 22:35 Lorazepam Inj (*Crx) 2 Mg/Ml Vial IV PUSH 0.5 mg Q6H PRN Administration Anxiety Losartan Potassium 25 mg 01/21/25 09:00 01/23/25 09:38 Losartan Potassium 25 Mg Tablet PO 25 mg DAILY BONNY Administration Pantoprazole Sodium 40 mg 01/23/25 07:00 01/23/25 09:38 Pantoprazole 40 Mg Tablet PO 40 mg QAM BONNY Administration Perflutren Lipid Microsphere 0 ml 01/21/25 17:55 Perflutren Lipid Microspheres 1.5 Ml Vial Diluted To 10 Ml Total Volume IV PUSH 01/24/25 17:55 ONCE PRN adequate visualization Protocol Prednisone 40 mg 01/23/25 08:00 01/23/25 09:38 Prednisone 20 Mg Tablet PO 01/27/25 07:59 40 mg DAILY@0800 BONNY Administration Radiology Results: ITS Impressions Chest X-Ray 01/20/25 20:26 IMPRESSION: No acute cardiopulmonary process. Chest CTA 01/21/25 16:21 IMPRESSION: 1. Pulmonary embolism with right ventricular strain. 2. Groundglass appearance is seen in both lower lobes and both upper lobes which may indicate atelectasis versus pneumonia versus pulmonary edema. Clinical correlation and follow-up advised. I called the hospitalist office multiple times with no success and left a message on the voicemail. ADDENDUM: 01/21/25 [id number] the hospitalist on-call was notified with the result of the patient at 5:55 PM on January 21, 2025. Venous Doppler Study 01/22/25 18:55 IMPRESSION: Thrombosis in the left peroneal and posterior tibial veins. No right deep vein thrombosis. Head CT 01/22/25 23:57 IMPRESSION: No acute intracranial findings. Labs Labs: Laboratory Results - last 24 hr 01/24/25 05:58 WBC 13.7 H RBC 4.66 Hgb 14.8 Hct 46.6 MCV 100.0 MCH 31.8 MCHC 31.8 L RDW 11.9 Plt Count 319 MPV 9.6 Immature Gran % (Auto) 0.7 H Neut % (Auto) 61.9 Lymph % (Auto) 27.3 [place] % (Auto) 7.8 Eos % (Auto) 1.9 Baso % (Auto) 0.4 Lymph # (Auto) 3.72 H [place] # (Auto) 1.1 H Eos # (Auto) 0.3 Baso # (Auto) 0.1 Abs Immat Gran (auto) 0.10 H Absolute Neuts (auto) 8.5 H Absolute Nucleated RBC 0.000 Nucleated RBC % 0.0 Sodium 133 L Potassium 4.0 Chloride 101 Carbon Dioxide 25 Anion Gap 7 BUN 20 H Creatinine 0.66 L Estim Creat Clear Calc 112 Estimated GFR > 60 Glucose 103 Calcium 8.8 Quality VTE Prophylaxis VTE prophylaxis: pharmacologic ordered Hospitalist [facility] Advance Care Plan I have confirmed that the patient's Advanced Care Plan is present, code status is documented, or surrogate decision maker is listed in patient medical record.: Yes Medication Reconciliation I have utilized all available resources to obtain, update and review the patients current medications (includes all prescriptions, OTC, herbals, cannabis, and nutritional supplements).: Yes
[2025-01-24] MEDS: ALBUTEROL SULFATE NEB 2.5 MG/3 ML INH INHALATION (08:07)
[2025-01-24] MEDS: PANTOPRAZOLE 40 MG TABLET PO (08:23)
[2025-01-24] MEDS: LOSARTAN POTASSIUM 25 MG TABLET PO (08:23)
--- NOTE | 2025-01-24 09:09 | PHAR ---
The patient's home med of Cetirizine 10mg has been verified.
[2025-01-24] MEDS: [UNRECOGNIZED DRUG - OTHER] BY MOUTH (09:31)
[2025-01-24] MEDS: CETIRIZINE 10 MG BY MOUTH (09:31)
[2025-01-24] MEDS: APIXABAN 5 MG TABLET 10 MG PO (10:54)
[2025-01-24] MEDS: LORazepam (*CRX) 0.5 MG TABLET PO (19:43)
--- NOTE | 2025-02-11 01:56 | PM.TDS ---
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 to consult: Cardiology Reason for consultation: Right heart strain on echo Has provider been notified: Yes Receiving physician/facility: Freya Saravia NP 01/24/2025 [facility] DS: Admitting Diagnosis Discharge Date 01/24/25 Admitting Diagnosis Acute PE DS: Discharge Diagnosis Discharge Diagnosis (1) DVT (deep venous thrombosis): Code(s): I82.409 - Acute embolism and thrombosis of unspecified deep veins of unspecified lower extremity Status: Acute (2) Acute pulmonary embolism: Code(s): I26.99 - Other pulmonary embolism without acute cor pulmonale Status: Acute (3) Acute hypokalemia: Code(s): E87.6 - Hypokalemia Status: Acute (4) COPD with acute exacerbation: Code(s): J44.1 - Chronic obstructive pulmonary disease with (acute) exacerbation Status: Acute Transfer Discharge Sum: Med Medications Active and Home Medications: Home Medications azithromycin 250 mg tablet See Rx Instructions PO .COMPLEX #6 tabs 01/20/25 [Rx] methylprednisolone 4 mg tablets in a dose pack (Medrol (Gm)) See Rx Instructions PO .COMPLEX #21 ea 01/20/25 [Rx] albuterol sulfate 90 mcg/actuation aerosol inhaler 1 puff inhalation PRN 01/21/25 [History Confirmed 01/21/25] losartan 25 mg tablet 25 mg PO DAILY 01/21/25 [History Confirmed 01/21/25] Transfer Discharge Sum: Hosp Hospital Course Hospital course: Brandi Mancia, a 49-year-old female, was admitted for evaluation and management of an acute pulmonary embolism (PE) and deep vein thrombosis (DVT). Initial CT imaging revealed multiple segmental and subsegmental PEs, with the source identified as DVT in the left peroneal and posterior tibial veins. The patient presented with intermediate-high risk PE, characterized by right ventricular (RV) strain, as evidenced by elevated NT-proBNP and echocardiographic findings of a dilated RV with reduced systolic function and Loera sign. The patient has a family history of DVTs and experienced facial flushing attributed to a mild hypersensitivity reaction to heparin. Hospital Course: Pulmonary Embolism and DVT: Initiated anticoagulation with heparin but developed flushing/allergy so switched to fondaparinux due to heparin allergy. Transfer to [facility] ([facility]) was initiated for thrombolysis/thrombectomy evaluation. Planned Hematology consultation to assess the patient's family history of blood clots and unprovoked DVT but was not seen prior to transfer Acute Respiratory Failure with Hypoxia 2/2 Acute PE and COPD exacerbation Symptoms: Shortness of breath, tachypnea, tachycardia. SpO2: 98% on room air. Tachycardic on exam 100-120, heart rate improving to 90s last night, <100s during the day today. ABG: pH 7.366, pCO2 39.3, pO2 70, HCO3 22, O2 93.6. D-dimer: Elevated at 3.19. Troponin trended; NT-proBNP elevated at 1560. EKG: Tachycardia. 01/20 Chest X-ray: No cardiopulmonary process. 01/21 CTA showed a PE with right ventricular strain. Acute Pulmonary Embolism: Spoke with the radiologist who read the CT; reported multiple segmental and subsegmental PEs. 01/21 CTA findings:Pulmonary embolism with right ventricular strain. Ground-glass appearance in both lower and upper lobes, which may indicate atelectasis versus pneumonia versus pulmonary edema. Clinical correlation and follow-up advised. Troponin <0.012, <0.012, 0.014. Consulted cardiology for recommendations given right heart strain. Not requiring oxygen; blood pressure normal. Heart rate still elevated but stable, 100-120s. Transferred to [facility] per cardiology recommendations. Started on Lovenox, then switched to heparin drip. Developed flushing, so stopped heparin drip; flushing resolved. Likely a mild hypersensitivity; could potentially retry at a lower dose if needed. Arixtra started at 9 pm on 01/24 after discussing dose and timing with pharmacy. Patient reported dizziness/presyncope, worried it was a side effect of Arixtra, so it was held overnight. Symptoms likely due to PE rather than Arixtra; patient initially did not wish to retry but later agreed if needed. Do not consider this an adverse reaction to Arixtra. Planning transfer to [facility]. If continues to improve, will consider repeating limited echo to reevaluate right heart strain. Facial Flushing: Flushing to face and chest this morning. Concern for possible mild reaction to heparin, so changed to Arixtra. Flushing improving off heparin, now resolved. Platelet count stable. Arixtra 10 mg at bedtime changed to Apixaban 10 mg BID. COPD with Acute Exacerbation: Wheezing in the ED, resolved. Monitored vital signs, intake and output, neuro status; patient is a fall risk. Oxygen via nasal cannula, wean as tolerated, keep SpO2 > 88%. Azithromycin 500 mg x3 completed. Duonebs every 6 hours and Albuterol every 2 hours as needed. Solu-Medrol 40 mg IV every 12 hours, changed to Prednisone 40 mg daily for 4 more days. Acute Hypokalemia: In the ED: Potassium 3.3, repeat 4. Replaced Anxiety: Not on home medications. Hydroxyzine TID as needed or Lorazepam 0.5 mg at bedtime as needed for 2 days for generalized anxiety. May be a component of tachypnea/tachycardia. Elevated White Blood Cell Count: WBC 24.3, up from 9 on 01/20. Overall improvin.2 > 12.2 < 13.7. Has been on Solu-Medrol, now on Prednisone. Transferred to [facility] Medications:?Continue anticoagulation. Prescribed a proton pump inhibitor for stress ulcer prophylaxis. Follow-Up:?Awaiting bed at [facility] for further evaluation and potential intervention. Follow up with Hematology for thrombophilia workup. Monitoring:?Continue to monitor and replace electrolytes to maintain potassium > 4 mEq/L and magnesium > 2 mEq/L. Oxygen therapy as needed to maintain SpO2 > 90%. Activity:?Encourage gradual increase in activity as tolerated, with PT/OT evaluation as needed. Code Status:?Full code per patient request. Patient Condition: Serious Time Spent with Patient Time attestation: Total time spent providing and/or coordinating transfer services:49 minutes Exam Narrative: Gen - well appearing female in no acute respiratory distress who is nontoxic-appearing lying semi recumbent in bed HEENT - normocephalic. Atraumatic. Pupils equal round and reactive. Extraocular motions intact. Sclera clear and anicteric. Nares patent. Oropharynx was clear. No oral lesions. Moist mucous membranes. Tongue was midline. Neck - neck was supple. No dominant adenopathy, thyromegaly or masses. 2+ carotid upstrokes without bruits. Chest - No wheezes No crackles. Slightly increased work of breathing CV - Tachycardic S1-S2. No murmurs gallops or rubs. Abd - abdomen was soft. Nontender. Nondistended. Positive bowel sounds. No organomegaly or masses. Ext - no clubbing, cyanosis LLE edema. 2+ DP pulses bilaterally. Neuro - patient is alert and oriented x4. Strength is 5/5 in both upper and lower extremities. Cranial nerves 2-12 are intact. Speech is clear. Psych - normal mood and affect. Patient is pleasant and cooperative. Skin - warm and dry. Flushing to face and chest resolved
== END 2025-01-24 19:40 | disposition home or self-care (01) | DRG 176 ==
LOC: ANHED 23:57 → ANH3MEDSUR 01-21 00:30
PROVIDERS: Family Medicine; Nurse Practitioner Acute Care; Physician Assistant; Admitting Provider Internal Medicine; Emergency Provider Emergency Medicine; PCP Internal Medicine; Visit Provider Internal Medicine
DX: I26.94 Multiple subsegmental thrombotic pulmonary emboli without acute cor pulmonale (principal); J44.1 Chronic obstructive pulmonary disease with (acute) exacerbation; I82.452 Acute embolism and thrombosis of left peroneal vein; I82.442 Acute embolism and thrombosis of left tibial vein; E87.6 Hypokalemia; F41.9 Anxiety disorder, unspecified; R23.2 Flushing; T45.515A Adverse effect of anticoagulants, initial encounter; Z20.822 Contact with and (suspected) exposure to COVID-19; Z87.891 Personal history of nicotine dependence
CPT/HCPCS: 36415; 36600; 70450; 71046; 71275; 80048; 80053; 82805; 83735; 83880; 84100; 84484; 85018; 85025; 85380; 85610; 85730; 87637; 93005; 93306; 93970; 94640; 96361; 96374; 97165; 99285; A9270; J1644; J1650; J1652; J2060; J2919; J7030; J7512; Q9967